=== PATIENT | male | born 1960 | race Caucasian/White ===

== ENCOUNTER 2017-01-25 19:37 | Inpatient (IN) | payer OTHER ==
[~2017-01-25] VITALS: Ht 167.6 cm; Wt 85.0 kg
[~2017-01-25 19:37] MED LIST: AMLO-218 PO; CEFT1PIG2 IVPB; INSU100C SC; LANT3I SC; SAN30GM TOP
[2017-01-26] MEDS ORDERED: PIPER-TAZO 3.375 GM IV (PMX) 100 ML IVPB STA (00:33)
[2017-01-26] MEDS ORDERED: morphine 4 MG/ML VIAL IV STA (01:44)
[2017-01-26] MEDS ORDERED: ONDANSETRON 4 MG INJ IV STA (01:44)
[2017-01-26 02:38] LABS: BASOPHIL # 0.1 10^3/ul (0.0-0.1); BASOPHILS % 1.1 % (0.0-2.0); EOSINOPHILS # 0.2 10^3/ul (0.0-0.5); EOSINOPHILS % 2.8 % (0.0-7.0); HEMATOCRIT 38.3 % (42.0-52.0); HEMOGLOBIN 13.6 g/dl (14.0-18.0); LYMPHOCYTES # 2.2 10^3/ul (0.8-2.9); LYMPHOCYTES % 41.7 % (15.0-51.0); MEAN CORPUSCULAR HEMOGLOBIN 33.2 pg (29.0-33.0); MEAN CORPUSCULAR HGB CONC 35.5 g/dl (32.0-37.0); MEAN CORPUSCULAR VOLUME 93.4 fl (82.0-101.0); MEAN PLATELET VOLUME 10.8 fl (7.4-10.4); MONOCYTE # 0.4 10^3/ul (0.3-0.9); MONOCYTES % 7.9 % (0.0-11.0); NEUTROPHILS % 46.3 % (39.0-77.0); PLATELET COUNT 147 10^3/UL (140-415); RED CELL DISTRIBUTION WIDTH 11.5 % (11.5-14.5); WHITE BLOOD COUNT 5.4 10^3/ul (4.8-10.8)
--- NOTE | 2017-01-26 02:42 | ERA ---
ER Documentation Chief Complaint Date/Time DATE: 01/26/17 TIME: 02:39 Chief Complaint ulcer on his right toe, diabetic HPI This is a 56-year-old male who has a worsening ulcer on his right foot is getting progressively bigger along with purulent drainage. Denies any fevers or chills no nausea vomiting. Denies any current issues. Says sugars have been under relative control ROS All systems reviewed and are negative except as per history of present illness. Medications Home Meds Active Scripts Ceftriaxone Sod* (Rocephin* 1GM/50ML (PMX)) 1 Gm/50 Ml Iv.soln., 1 GM IVPB Q24H for 28 Days, EA Prov:OSMAR SWAIN MD 05/28/15 Collagenase* (Santyl*) 1 Applic Oint, 1 APPLIC TOP DAILY for 28 Days, BOTTLE Prov:OSMAR SWAIN MD 05/27/15 Amlodipine Besylate* (Norvasc*) 10 Mg Tab, 10 MG PO DAILY for 28 Days, BOTTLE Prov:OSMAR SWAIN MD 04/01/15 Reported Medications Insulin Glargine* (Lantus*) 100 Unit/Ml Soln, 6 UNIT SC DAILY, EA 05/20/15 Insulin Lispro (Humalog) 100 U/Ml Cartridge, 0 SC SLIDING SCALE AC, EA 05/20/15 Allergies Allergies: Coded Allergies: No Known Allergy (Unverified , 03/23/15) PMhx/Soc History of Surgery: Yes (s/p right toe amputation 2016) Anesthesia Reaction: No Hx Neurological Disorder: Yes (neuropathy) Hx Respiratory Disorders: No Hx Cardiac Disorders: Yes (PVD) Hx Psychiatric Problems: No Hx Alcohol Use: Yes (ON WEEKENDS) Hx Substance Use: No Hx Tobacco Use: No Smoking Status: Unknown if ever smoked Physical Exam Vitals Vital Signs Date Time Temp Pulse Resp B/P Pulse Ox O2 Delivery O2 Flow Rate FiO2 01/25/17 21:14 98.9 83 18 180/91 98 Physical Exam Const: [] Head: Atraumatic Eyes: Normal Conjunctiva ENT: Normal External Ears, Nose and Mouth. Neck: Full range of motion..~ No meningismus. Resp: Clear to auscultation bilaterally Cardio: Regular rate and rhythm, no murmurs Abd: Soft, non tender, non distended. Normal bowel sounds Skin: Right foot with ulceration shows periodic drainage Back: No midline or flank tenderness Ext: No cyanosis, or edema Neur: Awake and alert Psych: Normal Mood and Affect Results 24 hrs Laboratory Tests Test 01/26/17 01:25 White Blood Count Pending Red Blood Count Pending Hemoglobin Pending Hematocrit Pending Mean Corpuscular Volume Pending Mean Corpuscular Hemoglobin Pending Mean Corpuscular Hemoglobin Concent Pending Red Cell Distribution Width Pending Platelet Count Pending Mean Platelet Volume Pending Current Medications Medications (Trade) Dose Ordered Sig/Lee Route PRN Reason Start Time Stop Time Status Last Admin Dose Admin Piperacillin Sod/ Tazobactam Sod (Zosyn 3.375gm/ 100 ml (Pmx)) 100 ml @ 200 mls/hr ONCE STAT IVPB 01/26/17 00:33 01/26/17 01:02 DC 01/26/17 01:40 Morphine Sulfate (morphine) 4 mg ONCE STAT IV 01/26/17 01:44 01/26/17 01:46 DC 01/26/17 02:09 Ondansetron HCl (Zofran Inj) 4 mg ONCE STAT IV 01/26/17 01:44 01/26/17 01:46 DC 01/26/17 02:09 Procedures/MDM Medical decision-makin yo male with worsening diabetic foot ulcer. Patient be admitted for intravenous antibiotics. Dr. Swain is on-call for the patient's insurance Departure Diagnosis: Primary Impression: Abscess of right foot Condition: Stable WAYNE WATTS Jan 26, 2017 02:42
[2017-01-26] MEDS ORDERED: GLIP5TAB13 PO (02:52)
[2017-01-26] MEDS ORDERED: ERGO2000 PO (02:52)
[2017-01-26] MEDS ORDERED: GEMF600T60 PO (02:52)
[2017-01-26 02:57] LABS: ALBUMIN 3.6 g/dl (3.3-4.9); ALBUMIN/GLOBULIN RATIO 1.02; BILIRUBIN,INDIRECT 0.5 mg/dl (0-1.1); BILIRUBIN,TOTAL 0.5 mg/dl (0.2-1.3); CREATININE 0.64 mg/dl (0.61-1.24); POTASSIUM 3.9 mmol/L (3.5-5.1); TOTAL PROTEIN 7.1 g/dl (6.1-8.1)
[2017-01-26] MEDS ORDERED: GLUCAGON 1 MG INJ IM PRN (09:00)
[2017-01-26] MEDS ORDERED: GLUCOSE GEL 15 GRAM TUBE BUCCAL PRN (09:00)
[2017-01-26] MEDS ORDERED: DEXTROSE 50% 50 ML SYRINGE IV PRN ×2 (09:00)
[2017-01-26] MEDS ORDERED: GLUCOSE GEL 15 GRAM TUBE PO PRN ×2 (09:00)
[2017-01-26 10:00] VITALS: Ht 167.6 cm; Wt 85.0 kg
[2017-01-26] MEDS ORDERED: VANCOMYCIN IV PER PHARMACY XX SCH (10:30)
[2017-01-26] MEDS ORDERED: ZOLPIDEM 5 MG TAB PO PRN (10:30)
[2017-01-26] MEDS ORDERED: ACETAMINOPHEN 325 MG TAB PO PRN (10:30)
[2017-01-26] MEDS ORDERED: ONDANSETRON 4 MG INJ IV PRN (10:30)
[2017-01-26] MEDS ORDERED: DOCUSATE SODIUM 100 MG CAP PO PRN (10:30)
[2017-01-26] MEDS ORDERED: HYDROCODONE/APAP (5/325) TAB PO PRN ×2 (10:30)
[2017-01-26] MEDS: GEMFIBROZIL 600 MG TAB PO SCH ×2 (11:46→21:23)
[2017-01-26] MEDS: AMLODIPINE 10 MG TAB PO SCH (11:47)
[2017-01-26] MEDS: CEFEPIME 1GM/50 ML (PMX) 50 ML IVPB SCH ×2 (11:49→21:22)
--- NOTE | 2017-01-26 11:56 | HP ---
DATE OF ADMISSION: 01/26/2017 REASON FOR ADMISSION: Right 2nd toe swelling and blackish discoloration. HISTORY OF PRESENT ILLNESS: This is this is a 56-year-old male with a past medical history of poorly-controlled diabetes, hypertension, hypercholesteremia, history of right 4th toe osteomyelitis, status post amputation and anemia who came in to the emergency department complaining of worsening redness, swelling and blackish discoloration of the right 2nd toe for past 3-4 days. Patient was seen in April 2015 where the patient had an abscess of the right 4th toe, had amputation. The patient was seen by ID and wound consultation. Patient was discharged with a PICC line with IV antibiotics. However, the patient said that he noticed worsening red 2nd toe, foot swelling and some blackish discoloration for the last 3 days, which made him worried and came to the emergency department. Denied any fevers and chills. According to the patient, he had not been taking insulin for the last 6 months due to some kind of paperwork. He just occasionally checks fingersticks at home, which are usually 140 in the morning. In the ED, vital signs were, temperature afebrile, heart rate 83, respirations 18, blood pressure 149/76, and then was given Zosyn and was admitted for further management. PAST MEDICAL HISTORY: 1. Diabetes. 2. Hypertension. 3. Hypercholesteremia. 4. History of osteomyelitis. 5. History of status post amputation of the right 4th toe. ALLERGIES: NONE. MEDICATIONS: Patient does not know 4 medications, which he takes at home. Has not taken insulin for the last 6 months. PAST SURGICAL HISTORY: Status post amputation of the right 4th toe. SOCIAL HISTORY: Drinks beer, 2 per day for many years. Denies any smoking or any other drug use. Works in [employer]. FAMILY HISTORY: Noncontributory. REVIEW OF SYSTEMS: Denies any chest pain, shortness of breath. Any abdominal pain, nausea, vomiting, diarrhea. Denies any headache, any blurry vision. Denies any urinary symptoms. Denies any focal neurological deficits. PHYSICAL EXAMINATION: VITAL SIGNS: Blood pressure 126/73, heart rate 71, respirations 17, afebrile. GENERAL: Patient is awake, alert, oriented x4. Does not appear to be in any acute distress. HEENT: Pupils equal, round, reactive to light. NECK: Supple. No JVD. HEART: Regular rate, rhythm. LUNGS: Clear to auscultate bilaterally. ABDOMEN: Soft, nontender, nondistended. Positive normoactive bowel sounds. EXTREMITIES: Right lower extremity, right 2nd toe, patient has a blackish discoloration of the tip of the toe associated with some swelling and redness on the 1st metatarsal, on the tip, extending to the back. Status post amputation on the right 4th toe. Dorsalis pedis is present. Good pulses on the left. DIAGNOSTIC DATA: BMP within normal limits. Glucose of 257. White count of 5.4, hemoglobin 13.6, platelet count of 147. ASSESSMENT: This is a 56-year-old male presenting with: 1. Right 2nd toe cellulitis, rule out osteomyelitis. 2. Diabetes, uncontrolled, off insulin for last 6 months. 3. Hypertension. 4. Hypercholesteremia. 5. History of osteomyelitis, status post amputation of right 4th toe. PLAN: At this period of time, patient is admitted to med-surg unit. Patient will be started on IV antibiotics with vancomycin and Zosyn. We will also get an x-ray to rule out for osteomyelitis. We will call Dr. Meehan for podiatry consultation. Also call ID consultation with Dr. Shanks. GI and DVT prophylaxis. The patient will remain strict diabetic control. Spoke to the patient with the help of a translator interpreter. The rest of the treatment will depend on the patient's hospitalization course. Dictated By: MD GIORGI Admae/regino/jozef /Document#: [id number]
[2017-01-26] MEDS: INSULIN GLARGINE [LANtus] 3 ML PEN SC SCH (11:58)
[2017-01-26] MEDS: INSULIN ASPART [NOVOLOG] 3 ML PEN SC SCH ×3 (11:59→22:53)
--- NOTE | 2017-01-26 13:45 | RADRPT ---
PROCEDURE: XR Foot. CLINICAL INDICATION: Right foot pain and swelling, concern for osteomyelitis TECHNIQUE: 3 views of the right foot are available for review. COMPARISON: Radiographs of the right foot March 19, 2015 and May 20, 2015 and MRI of the ri t foot May 22 15 FINDINGS: There is amputation of the fourth digit. Slight bone remodelling of the fourth metatarsal head is n oted, similar to prior. There is a small subchondral cyst or erosion at the head of the second middle phalanx. There is fore foot soft tissue swelling and swelling of the second digit. There are vascular calcifications. There is mild first metatarsophalangeal joint osteoarthrosis. IMPRESSION: 1. Small nonspecific subchondral lucency at the head of the second middle phalanx, not clearly seen on prior . This could be degenerative though cannot exclude osteomyelitis at this location. Recomm end MRI for further evaluation. 2. Forefoot soft tissue swelling, most prominent at the second digit. 3. Amputation of the fourth digit. Slight bone remodelling of the fourth metatarsal head at site o f prior osteomyelitis. RPTAT: UU .Edgar Espinal MD, MD Date Time Electronically viewed and signed by .Edgar Espinal MD, on 01/26/2017 13:44 .K/
[2017-01-26 14:12] VITALS: BP 150/82; RESP 20
[2017-01-26] MEDS ORDERED: VANCOMYCIN 2 GM in SOD CHLORIDE 0.9% 500 ML IVPB SCH (15:00)
--- NOTE | 2017-01-26 17:20 | CONS ---
DATE OF ADMISSION: 01/26/2017 DATE OF CONSULTATION: 01/26/2017 REASON FOR CONSULTATION: Antibiotic management. HISTORY OF PRESENT ILLNESS: Anjel Mena is a 56-year-old male, who was admitted with right 2nd toe swelling and blackish discoloration. His past problems include: 1. Adult onset diabetes mellitus. 2. Peripheral vascular disease. 3. Status post amputation of right 4th toe. 4. Hypertension. 5. Hypercholesterolemia. 6. History of osteomyelitis in the past. Acutely, patient has poorly controlled diabetes. He comes to the emergency room with worsening redness, swelling and blackish discoloration of right 2nd toe, which has been going on for the last 3 or 4 days. He was seen in January 2015, where he had an abscess of the right 4th toe, which was amputated. He was seen by ID and Wound Care. He was discharged with a PICC line and IV antibiotics. Patient notes that he noted worsening of the right 2nd toe with foot swelling and discoloration over the last 3 days. Denies fever or chills. He has not been taking insulin for the last 6 months. Patient was given Zosyn in the emergency room. On admission, his white count was 5.4, H and H of 13.6 and 38.3, platelet count 147,000. BUN and creatinine are 9/0.64. His liver function tests are within normal limits. Lipase is 232, anion gap of 18. Patient is now on vancomycin and cefepime. Imaging studies are pending. Blood cultures were done. PAST MEDICAL HISTORY: Operations as outlined. FAMILY HISTORY: Noncontributory. SURGICAL HISTORY: As outlined. SOCIAL HISTORY: He drinks 2 cans of beer per day. Does not smoke or abuse drugs. He works grape picking. ALLERGIES: NONE TO PENICILLIN, SULFA OR FOODS. MEDICATION: Per chart review. REVIEW OF SYSTEMS: As per HPI. PHYSICAL EXAMINATION: GENERAL: Patient is a well-developed, well-nourished male, who is alert, responsive, in no acute distress. VITAL SIGNS: Stable. He is afebrile. SKIN: Without generalized rash. HEENT: Within normal limits. NECK: Supple. LYMPH NODES: None palpable. CHEST: Decreased breath sounds at the bases. HEART: Without murmur or gallop. ABDOMEN: Soft, nontender, without organo-splenomegaly or masses. EXTREMITIES: His right 2nd toe has blackish discoloration of the tip of the toe with some swelling and redness of the 1st metatarsal as well, status post amputation of the right 4th toe. IMPRESSION AND PLAN: Patient is on vancomycin and cefepime. Dr. Meehan has been called from Podiatry. I will dictate my findings to Dr. Burkett. Dictated By: Merrill Shanks MD JD/regino/kim /Document#: [id number]
[2017-01-26 19:24] VITALS: BP 158/91; RESP 20
[2017-01-27 01:49] VITALS: BP 132/78; RESP 20
[2017-01-27] MEDS: ACCU-CHEK XX SCH (01:54)
[2017-01-27] MEDS ORDERED: ACCU-CHEK XX SCH ×2 (02:00)
[2017-01-27] MEDS: VANCOMYCIN 1.5 GM in SOD CHLORIDE 0.9% 250 ML IVPB SCH ×2 (05:10→16:36)
[2017-01-27 06:35] LABS: BASOPHILS % 0.8 % (0.0-2.0); EOSINOPHILS # 0.2 10^3/ul (0.0-0.5); EOSINOPHILS % 3.3 % (0.0-7.0); HEMATOCRIT 38.8 % (42.0-52.0); HEMOGLOBIN 13.6 g/dl (14.0-18.0); LYMPHOCYTES # 1.8 10^3/ul (0.8-2.9); LYMPHOCYTES % 34.6 % (15.0-51.0); MEAN CORPUSCULAR HGB CONC 35.1 g/dl (32.0-37.0); MEAN CORPUSCULAR VOLUME 94.2 fl (82.0-101.0); MEAN PLATELET VOLUME 10.8 fl (7.4-10.4); MONOCYTE # 0.3 10^3/ul (0.3-0.9); MONOCYTES % 6.7 % (0.0-11.0); NEUTROPHILS % 54.4 % (39.0-77.0); PLATELET COUNT 150 10^3/UL (140-415); RED BLOOD COUNT 4.12 10^6/ul (4.70-6.10); RED CELL DISTRIBUTION WIDTH 11.3 % (11.5-14.5); WHITE BLOOD COUNT 5.1 10^3/ul (4.8-10.8)
[2017-01-27] MEDS: AMLODIPINE 10 MG TAB PO SCH (08:20)
[2017-01-27] MEDS: GEMFIBROZIL 600 MG TAB PO SCH ×2 (08:20→20:50)
[2017-01-27] MEDS: INSULIN ASPART [NOVOLOG] 3 ML PEN SC SCH ×4 (08:28→20:57)
[2017-01-27] MEDS: INSULIN GLARGINE [LANtus] 3 ML PEN SC SCH (08:28)
[2017-01-27 08:58] VITALS: BP 144/89; RESP 20
[2017-01-27] MEDS ORDERED: FAMOTIDINE 20 MG INJ IV SCH (09:00)
[2017-01-27] MEDS: CEFEPIME 1GM/50 ML (PMX) 50 ML IVPB SCH (09:44)
[2017-01-27] MEDS: ENOXAPARIN 40 MG/0.4 ML SYG SC SCH (09:56)
--- NOTE | 2017-01-27 12:31 | PN ---
Date/Time of Note Date/Time of Note DATE: 01/27/17 TIME: 12:30 Assessment/Plan VTE Prophylaxis VTE Prophylaxis Intervention: LMWH Lines/Catheters IV Catheter Type (from Nrs): Saline Lock Assessment/Plan Chief Complaint/Hosp Course 56 y/o with 1. Right 2nd toe cellulitis, rule out osteomyelitis. 2. Diabetes, uncontrolled, off insulin for last 6 months. 3. Hypertension. 4. Hypercholesteremia. 5. History of osteomyelitis, status post amputation of right 4th toe. Recs - On iv Vancomycin, switched to po Levaquin, appreciate I.D recs - MRI of rt foot to r/o osteomyelitis - Podiatry consult pending - increase Lantus to 8 , DM teaching - GI/DVT prophylaxsis Problems: Subjective 24 Hr Interval Summary Free Text/Dictation Pt feels better Exam/Review of Systems Vital Signs Vitals Vital Signs Date Time Temp Pulse Resp B/P Pulse Ox O2 Delivery O2 Flow Rate FiO2 01/27/17 08:58 97.4 72 20 144/89 97 01/26/17 06:15 Room Air Intake and Output 01/26/17 01/26/17 01/27/17 15:00 23:00 07:00 Intake Total 2170 ml 600 ml Output Total 1800 ml 1800 ml Balance 370 ml -1200 ml Exam Gen:Awake,alert Neck:supple CVS:Regular rate and rthym Abdomen:soft , non tender Ext rt 2nd toe black discoloration, erthyema, swelling 1+pulses Results Result Diagram: 01/27/17 0543 01/26/17 0125 Results 24 hrs Laboratory Tests Test 01/26/17 17:15 01/26/17 22:48 01/27/17 01:54 01/27/17 05:43 Bedside Glucose 221 H 192 198 White Blood Count 5.1 Red Blood Count 4.12 L Hemoglobin 13.6 L Hematocrit 38.8 L Mean Corpuscular Volume 94.2 Mean Corpuscular Hemoglobin 33.0 Mean Corpuscular Hemoglobin Concent 35.1 Red Cell Distribution Width 11.3 L Platelet Count 150 Mean Platelet Volume 10.8 H Neutrophils % 54.4 Lymphocytes % 34.6 Monocytes % 6.7 Eosinophils % 3.3 Basophils % 0.8 Nucleated Red Blood Cells % 0.0 Neutrophils # (Manual) 2.8 Lymphocytes # 1.8 Monocytes # 0.3 Eosinophils # 0.2 Basophils # 0.0 Nucleated Red Blood Cells # 0.0 Test 01/27/17 07:53 01/27/17 11:59 Bedside Glucose 196 206 Medications Medications Current Medications Amlodipine Besylate (Norvasc) 10 mg DAILY PO Last administered on 01/27/17 08: 20; Admin Dose 10 MG; Start 01/26/17 at 09:00 Gemfibrozil (Lopid) 600 mg BID PO Last administered on 01/27/17 08:20; Admin Dose 600 MG; Start 01/26/17 at 09:00 Insulin Glargine (Lantus) 6 unit DAILY SC Last administered on 01/27/17 08:28 ; Admin Dose 6 UNIT; Start 01/26/17 at 09:00 Miscellaneous Information 1 ea NOTE XX ; Start 01/26/17 at 09:00 Glucose (Glutose) 15 gm Q15M PRN PO DECREASED GLUCOSE; Start 01/26/17 at 09:00 Glucose (Glutose) 22.5 gm Q15M PRN PO DECREASED GLUCOSE; Start 01/26/17 at 09: 00 Dextrose (D50w Syringe) 25 ml Q15M PRN IV DECREASED GLUCOSE; Start 01/26/17 at 09:00 Dextrose (D50w Syringe) 50 ml Q15M PRN IV DECREASED GLUCOSE; Start 01/26/17 at 09:00 Glucagon (Glucagen) 1 mg Q15M PRN IM DECREASED GLUCOSE; Start 01/26/17 at 09:00 Glucose (Glutose) 15 gm Q15M PRN BUCCAL DECREASED GLUCOSE; Start 01/26/17 at 09 :00 Ondansetron HCl (Zofran Inj) 4 mg Q6H PRN IV NAUSEA AND/OR VOMITING; Start at 10:30 Acetaminophen (Tylenol Tab) 650 mg Q6H PRN PO PAIN LEVEL 1-3 OR FEVER; Start at 10:30 Acetaminophen/ Hydrocodone Bitart ([place] (5/325)) 1 tab Q6H PRN PO MODERATE PAIN LEVEL 4-6; Start 01/26/17 at 10:30 Acetaminophen/ Hydrocodone Bitart ([place] (5/325)) 2 tab Q6H PRN PO SEVERE PAIN LEVEL 7-10; Start 01/26/17 at 10:30 Docusate Sodium (Colace) 100 mg Q12H PRN PO CONSTIPATION; Start 01/26/17 at 10: 30 Zolpidem Tartrate (Ambien) 5 mg QHS PRN PO SLEEP; Start 01/26/17 at 10:30 Famotidine (Pepcid Iv) 20 mg Q12 IV Last administered on 01/27/17 09:44; Admin Dose 20 MG; Start 01/27/17 at 09:00 Enoxaparin Sodium (Lovenox) 40 mg DAILY SC Last administered on 01/27/17 09:56 ; Admin Dose 40 MG; Start 01/27/17 at 09:00 Diagnostic Test (Pha) 1 ea 1 ea 02 XX Last administered on 01/27/17 01:54; Admin Dose 1 EA; Start 01/27/17 at 02:00 Cefepime HCl 50 ml @ 100 mls/hr Q12 IVPB Last administered on 01/27/17 09:44 ; Admin Dose 100 MLS/HR; Start 01/26/17 at 12:00 Vancomycin HCl/ Sodium Chloride (Vancocin/NS) 250 ml @ 83.333 mls/ hr Q12H IVPB Last administered on 01/27/17 05:10; Admin Dose 83.333 MLS/HR; Start at 05:00 NAZIA LEWIS MD Jan 27, 2017 12:31
[2017-01-27] MEDS ORDERED: LEVOFLOXACIN 500 MG TAB PO ONE (13:30)
[2017-01-27 15:07] VITALS: BP 119/63; RESP 20
--- NOTE | 2017-01-27 18:08 | CONS ---
DATE OF ADMISSION: 01/26/2017 DATE OF CONSULTATION: 01/27/2017 VASCULAR SURGERY CONSULTATION: HISTORY OF PRESENT ILLNESS: Mr. Anjel Mena is a 56-year-old gentleman who presented to [facility] secondary to right diabetic foot infection with second toe gangrene in which he is currently receiving IV antibiotics. Of note, the patient has had a history of previous right lower extremity trauma with deformity and a fourth toe amputation that was performed in 2014. At the moment, the patient denies shortness of breath, chest pain, nausea, vomiting, fever, or chills. REVIEW OF SYSTEMS: Fourteen point review performed and negative except what was mentioned in HPI. PAST MEDICAL HISTORY: Diabetes, hypertension, hypercholesterolemia, right foot osteomyelitis of the fourth toe, right lower leg tib-fib fracture. PAST SURGICAL HISTORY: Right fourth toe amputation. ALLERGIES: NONE. SOCIAL HISTORY: The patient drinks alcohol. Denies tobacco or illicit drug use. FAMILY HISTORY: Diabetes and hypertension. PHYSICAL EXAMINATION: GENERAL APPEARANCE: Alert and oriented x3. No apparent distress. HEENT: Normocephalic, atraumatic. PERRLA. EOMI. Mucosa moist. NECK: Supple. No carotid bruit. LUNGS: Clear to auscultation bilaterally. No crackles. HEART: S1, S2 present. No murmurs. ABDOMEN: Soft, nontender, nondistended. Bowel sounds positive. EXTREMITIES: Right lower extremity, palpable femoral pulse, palpable pedal pulse. Motor and sensory intact. Capillary refill 3 seconds. Previous fourth toe amputation site that is well healed. Second toe with erythema and gangrene at the tip. Left lower extremity, palpable femoral pulse, palpable pedal pulse. Motor and sensory intact. Capillary refill 3 seconds. IMPRESSION AND PLAN: 1. Bilateral lower extremity atherosclerosis with right lower extremity diabetic foot infection second toe gangrene: It seems the patient does have some component of atherosclerosis; however, the patient does have palpable pedal pulse in which his infection likely is related to his diabetes and not to a flow-limiting stenosis. We will plan to obtain noninvasive vascular studies to further evaluate his right lower extremity perfusion and will follow his progress of his second toe. 2. Continue local wound care per our podiatry colleagues. 3. Continue with antibiotics. Thank you for allowing us to partake in the care of your patient. Please call with any questions. I discussed findings, plan and management with the patient, he understands. Optimize vascular status (BP meds, diet, nutrition, exercise, sugar control, antiplatelets). Dictated By: Spencer Contreras MD /regino/waylon /Document#: [id number]
[2017-01-27 20:00] VITALS: BP 133/77; RESP 20
[2017-01-27] MEDS: FAMOTIDINE 20 MG TAB PO SCH (20:50)
--- NOTE | 2017-01-27 23:54 | RADRPT ---
PROCEDURE: US Lower extremity arterial. CLINICAL INDICATION: Lower extremity ulcer. TECHNIQUE: Multiple sonographic images of the bilateral lower extremity arteries was obtained utili zing grayscale, color-flow, and doppler imaging. The images were reviewed on a PACS workstation. COMPARISON: None. FINDINGS: RIGHT LEG: Common femoral artery: 138 cm/s; triphasic waveforms Proximal superficial femoral artery: 114 cm/s; triphasic waveforms Mid superficial femoral artery: 126 cm/s; triphasic waveforms Distal superficial femoral artery: 114 cm/s; triphasic waveforms Popliteal artery: 77 cm/s; triphasic waveforms Posterior tibial artery: 75 cm/s; triphasic waveforms Dorsalis pedis artery: 93 cm/s; biphasic waveforms LEFT LEG: Common femoral artery: 103 cm/s; triphasic waveforms Proximal superficial femoral artery: 93 cm/s; triphasic waveforms Mid superficial femoral artery: 103 cm/s; triphasic waveforms Distal superficial femoral artery: 73 cm/s; triphasic waveforms Popliteal artery: 86 cm/s; triphasic waveforms Posterior tibial artery: 56 cm/s; triphasic waveforms Dorsalis pedis artery: 56 cm/s; triphasic waveforms Right HCAGO: 1.1 Left CHAGO: 1 IMPRESSION: 1. Mildly dampened wave form in the right dorsalis pedis artery, possibly related to intrinsic dise ase. 2. No evidence of hemodynamically significant stenosis bilaterally. RPTAT: HLBP CHAGO Value Interpretation Recommendation >1.4 Calcification/Vessel Hardening Refer to a Vascular Specialist 1.0-1.4 Normal None 0.9-1.0 Acceptable None 0.8-0.9 Some Arterial Disease Treat Risk Factors 0.5-0.8 Moderate Arterial Disease Refer to a Vascular Specialist Stenosis category Peak systolic velocity (cm/s) Velocity ratio Distal artery spectral waveform <20% <150 <1.5 Triphasic, normal PSV 20% to 49% 150-200 1.5-2.0 Triphasic, normal PSV 50% to 75% 200-300 2.0-4.0 Monophasic, reduced PSV >75% >300, EDV >40 >4.0 Damped monophasic, reduced PSV Occlusion No flow Damped monophasic, reduced PSV Interpretation of arterial duplex testing of lower-extremity arteries and interventions. Seminars in Vascular Surgery. 2013-Jan;26(2-3):95-104. .Junior Layne MD, MD Date Time Electronically viewed and signed by .Junior Layne MD, MD on 01/27/2017 23:53 .P/
[2017-01-28 01:18] VITALS: BP 155/87; RESP 20
--- NOTE | 2017-01-28 01:18 | CONS ---
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 Will discuss with team. Thank you again for involving me in the care of this patient. If you have any questions regarding this case, please feel free to contact me at pager: [phone] or reach me at mobile: [phone]. Consultation Date/Type/Reason Admit Date/Time Jan 26, 2017 at 02:37 Date of Consultation: Jan 27, 2017 Type of Consultation: Foot and ankle surgery Reason for Consultation Evaluation and opinion on right forefoot gangrene Social History Smoking Status: Never smoker Exam/Review of Systems Vital Signs Vitals Vital Signs Date Time Temp Pulse Resp B/P Pulse Ox O2 Delivery O2 Flow Rate FiO2 01/27/17 20:00 97.9 69 20 133/77 97 01/26/17 06:15 Room Air Intake and Output 01/27/17 01/27/17 01/28/17 15:00 23:00 07:00 Intake Total 300 ml 1210 ml Output Total 2200 ml 550 ml Balance 300 ml -990 ml -550 ml Results Result Diagram: 01/27/17 0543 01/26/17 0125 Results 24 hrs Laboratory Tests Test 01/27/17 01:54 01/27/17 05:43 01/27/17 07:53 01/27/17 11:59 Bedside Glucose 198 196 206 White Blood Count 5.1 Red Blood Count 4.12 L Hemoglobin 13.6 L Hematocrit 38.8 L Mean Corpuscular Volume 94.2 Mean Corpuscular Hemoglobin 33.0 Mean Corpuscular Hemoglobin Concent 35.1 Red Cell Distribution Width 11.3 L Platelet Count 150 Mean Platelet Volume 10.8 H Neutrophils % 54.4 Lymphocytes % 34.6 Monocytes % 6.7 Eosinophils % 3.3 Basophils % 0.8 Nucleated Red Blood Cells % 0.0 Neutrophils # (Manual) 2.8 Lymphocytes # 1.8 Monocytes # 0.3 Eosinophils # 0.2 Basophils # 0.0 Nucleated Red Blood Cells # 0.0 Test 01/27/17 17:31 01/27/17 20:52 Bedside Glucose 252 H 191 Medications Medications Current Medications Amlodipine Besylate (Norvasc) 10 mg DAILY PO Last administered on 01/27/17 08: 20; Admin Dose 10 MG; Start 01/26/17 at 09:00 Gemfibrozil (Lopid) 600 mg BID PO Last administered on 01/27/17 20:50; Admin Dose 600 MG; Start 01/26/17 at 09:00 Miscellaneous Information 1 ea NOTE XX ; Start 01/26/17 at 09:00 Glucose (Glutose) 15 gm Q15M PRN PO DECREASED GLUCOSE; Start 01/26/17 at 09:00 Glucose (Glutose) 22.5 gm Q15M PRN PO DECREASED GLUCOSE; Start 01/26/17 at 09: 00 Dextrose (D50w Syringe) 25 ml Q15M PRN IV DECREASED GLUCOSE; Start 01/26/17 at 09:00 Dextrose (D50w Syringe) 50 ml Q15M PRN IV DECREASED GLUCOSE; Start 01/26/17 at 09:00 Glucagon (Glucagen) 1 mg Q15M PRN IM DECREASED GLUCOSE; Start 01/26/17 at 09:00 Glucose (Glutose) 15 gm Q15M PRN BUCCAL DECREASED GLUCOSE; Start 01/26/17 at 09 :00 Ondansetron HCl (Zofran Inj) 4 mg Q6H PRN IV NAUSEA AND/OR VOMITING; Start at 10:30 Acetaminophen (Tylenol Tab) 650 mg Q6H PRN PO PAIN LEVEL 1-3 OR FEVER; Start at 10:30 Acetaminophen/ Hydrocodone Bitart ([place] (5/325)) 1 tab Q6H PRN PO MODERATE PAIN LEVEL 4-6; Start 01/26/17 at 10:30 Acetaminophen/ Hydrocodone Bitart ([place] (5/325)) 2 tab Q6H PRN PO SEVERE PAIN LEVEL 7-10; Start 01/26/17 at 10:30 Docusate Sodium (Colace) 100 mg Q12H PRN PO CONSTIPATION; Start 01/26/17 at 10: 30 Zolpidem Tartrate (Ambien) 5 mg QHS PRN PO SLEEP; Start 01/26/17 at 10:30 Enoxaparin Sodium (Lovenox) 40 mg DAILY SC Last administered on 01/27/17 09:56 ; Admin Dose 40 MG; Start 01/27/17 at 09:00 Diagnostic Test (Pha) 1 ea 1 ea 02 XX Last administered on 01/27/17 01:54; Admin Dose 1 EA; Start 01/27/17 at 02:00 Vancomycin HCl/ Sodium Chloride (Vancocin/NS) 250 ml @ 83.333 mls/ hr Q12H IVPB Last administered on 01/27/17 16:36; Admin Dose 83.333 MLS/HR; Start at 05:00 Levofloxacin (Levaquin) 500 mg DAILY@06 PO ; Start 01/28/17 at 06:00 Miscellaneous Information (*Rx Drug Level Order Reminder*) VANCOMYCIN TROUGH AT 0400 ONCE ONCE XX ; Start 01/28/17 at 04:00; Stop 01/28/17 at 04:01 Famotidine (Pepcid) 20 mg Q12 PO Last administered on 01/27/17 20:50; Admin Dose 20 MG; Start 01/27/17 at 21:00 Insulin Glargine (Lantus) 8 unit DAILY SC ; Start 01/28/17 at 09:00 HIGINIO ECHEVARRIA DPM Jan 28, 2017 01:18 HIGINIO ECHEVARRIA DPM Jan 28, 2017 01:18
[2017-01-28] MEDS: ACCU-CHEK XX SCH (01:55)
--- NOTE | 2017-01-28 02:46 | PN ---
DATE: 01/27/2017 SUBJECTIVE DATA: No events overnight. No fevers. The patient is alert, denies pain, looks comfortable. LABORATORY AND DIAGNOSTIC DATA: WBC 5.1, no shift, no bands. BUN 9, creatinine 0.64. Microbiology blood cultures remain negative. ANTIMICROBIALS: The patient is on IV vancomycin and cefepime. PHYSICAL EXAMINATION: Well-developed, middle-aged man who is alert in no distress. HEENT: Head atraumatic, normocephalic. Sclerae are anicteric. Buccal mucosa is pink. NECK: Supple. LUNGS: Chest rise is symmetrical. Breath sounds are clear. HEART: S1, S2. ABDOMEN: Soft. Bowel sounds present. EXTREMITIES: Right second toe edema, erythema, and wound. ASSESSMENT: 1. Right foot cellulitis with probable osteomyelitis of the toe. 2. Poorly controlled diabetes. 3. Peripheral vascular disease. 4. Hypertension. 5. History of osteomyelitis in the past. PLAN: We are going to change cefepime to Levaquin. Continue vancomycin. Consider MRI of the foot and podiatry evaluation. Dictated By: Miguel Ángel Briggs NP /regino/daquan /Document#: [id number]
[2017-01-28] MEDS: LEVOFLOXACIN 500 MG TAB PO SCH (05:24)
[2017-01-28] MEDS: VANCOMYCIN 1.5 GM in SOD CHLORIDE 0.9% 250 ML IVPB SCH (05:24)
[2017-01-28 05:47] LABS: CREATININE 0.78 mg/dl (0.61-1.24)
[2017-01-28] MEDS: INSULIN ASPART [NOVOLOG] 3 ML PEN SC SCH ×4 (08:02→20:24)
[2017-01-28 08:20] VITALS: BP 161/86; RESP 18
[2017-01-28] MEDS: GEMFIBROZIL 600 MG TAB PO SCH ×2 (08:44→20:19)
[2017-01-28] MEDS: FAMOTIDINE 20 MG TAB PO SCH ×2 (08:44→20:19)
[2017-01-28] MEDS: AMLODIPINE 10 MG TAB PO SCH (08:44)
[2017-01-28] MEDS: ENOXAPARIN 40 MG/0.4 ML SYG SC SCH (08:48)
[2017-01-28] MEDS ORDERED: INSULIN GLARGINE [LANtus] 3 ML PEN SC SCH (09:00)
--- NOTE | 2017-01-28 10:26 | PN ---
Date/Time of Note Date/Time of Note DATE: 01/28/17 TIME: 10:26 Assessment/Plan VTE Prophylaxis VTE Prophylaxis Intervention: LMWH Lines/Catheters IV [facility] ([facility] [place] Urinary Cath still in place: No Assessment/Plan Chief Complaint/Hosp Course 56 y/o with 1. Right 2nd toe cellulitis, rule out osteomyelitis 2. Diabetes, uncontrolled, off insulin for last 6 months. 3. Hypertension. 4. Hypercholesteremia. 5. History of osteomyelitis, status post amputation of right 4th toe. Recs - On iv Vancomycin/Levaquin po - Spoke to Dr Meehan, will schedule him - MRI of rt foot to r/o osteomyelitis pending results - increase Lantus to 10 , DM teaching, pt will likely need insulin with meals - Add benazepril for BP - GI/DVT prophylaxsis Problems: Subjective 24 Hr Interval Summary Free Text/Dictation Pt denies any complains Exam/Review of Systems Vital Signs Vitals Vital Signs Date Time Temp Pulse Resp B/P Pulse Ox O2 Delivery O2 Flow Rate FiO2 01/28/17 08:20 97.6 77 18 161/86 97 01/26/17 06:15 Room Air Intake and Output 01/27/17 01/27/17 01/28/17 14:59 22:59 06:59 Intake Total 300 ml 1210 ml Output Total 2200 ml 1000 ml Balance 300 ml -990 ml -1000 ml Exam Gen: Awake, oriented Neck:supple Lungs:clear Abdomen:soft, non tender Ext: rt 2nd toe black discoloration with redness, dorsalis pedis present+ Results Result Diagram: 01/27/17 0543 01/28/17 0420 Results 24 hrs Laboratory Tests Test 01/27/17 11:59 01/27/17 17:31 01/27/17 20:52 01/28/17 01:54 Bedside Glucose 206 252 H 191 171 Test 01/28/17 04:20 01/28/17 07:42 Blood Urea Nitrogen 12 Creatinine 0.78 Vancomycin Level Trough 11.1 Bedside Glucose 165 Medications Medications Current Medications Amlodipine Besylate (Norvasc) 10 mg DAILY PO Last administered on 01/28/17 08: 44; Admin Dose 10 MG; Start 01/26/17 at 09:00 Gemfibrozil (Lopid) 600 mg BID PO Last administered on 01/28/17 08:44; Admin Dose 600 MG; Start 01/26/17 at 09:00 Miscellaneous Information 1 ea NOTE XX ; Start 01/26/17 at 09:00 Glucose (Glutose) 15 gm Q15M PRN PO DECREASED GLUCOSE; Start 01/26/17 at 09:00 Glucose (Glutose) 22.5 gm Q15M PRN PO DECREASED GLUCOSE; Start 01/26/17 at 09: 00 Dextrose (D50w Syringe) 25 ml Q15M PRN IV DECREASED GLUCOSE; Start 01/26/17 at 09:00 Dextrose (D50w Syringe) 50 ml Q15M PRN IV DECREASED GLUCOSE; Start 01/26/17 at 09:00 Glucagon (Glucagen) 1 mg Q15M PRN IM DECREASED GLUCOSE; Start 01/26/17 at 09:00 Glucose (Glutose) 15 gm Q15M PRN BUCCAL DECREASED GLUCOSE; Start 01/26/17 at 09 :00 Ondansetron HCl (Zofran Inj) 4 mg Q6H PRN IV NAUSEA AND/OR VOMITING; Start at 10:30 Acetaminophen (Tylenol Tab) 650 mg Q6H PRN PO PAIN LEVEL 1-3 OR FEVER; Start at 10:30 Acetaminophen/ Hydrocodone Bitart ([place] (5/325)) 1 tab Q6H PRN PO MODERATE PAIN LEVEL 4-6; Start 01/26/17 at 10:30 Acetaminophen/ Hydrocodone Bitart ([place] (5/325)) 2 tab Q6H PRN PO SEVERE PAIN LEVEL 7-10; Start 01/26/17 at 10:30 Docusate Sodium (Colace) 100 mg Q12H PRN PO CONSTIPATION; Start 01/26/17 at 10: 30 Zolpidem Tartrate (Ambien) 5 mg QHS PRN PO SLEEP; Start 01/26/17 at 10:30 Enoxaparin Sodium (Lovenox) 40 mg DAILY SC Last administered on 01/28/17 08:48 ; Admin Dose 40 MG; Start 01/27/17 at 09:00 Diagnostic Test (Pha) 1 ea 1 ea 02 XX Last administered on 01/27/17 01:54; Admin Dose 1 EA; Start 01/27/17 at 02:00 Vancomycin HCl/ Sodium Chloride (Vancocin/NS) 250 ml @ 83.333 mls/ hr Q12H IVPB Last administered on 01/28/17 05:24; Admin Dose 83.333 MLS/HR; Start at 05:00 Levofloxacin (Levaquin) 500 mg DAILY@06 PO Last administered on 01/28/17 05:24 ; Admin Dose 500 MG; Start 01/28/17 at 06:00 Famotidine (Pepcid) 20 mg Q12 PO Last administered on 01/28/17 08:44; Admin Dose 20 MG; Start 01/27/17 at 21:00 Insulin Glargine (Lantus) 8 unit DAILY SC Last administered on 01/28/17 08:14 ; Admin Dose 8 UNIT; Start 01/28/17 at 09:00 NAZIA LEWIS MD Jan 28, 2017 10:26
[2017-01-28 14:52] VITALS: BP 158/88; PULSE 68; RESP 18
--- NOTE | 2017-01-28 15:28 | PN ---
DATE: 01/28/2017 SUBJECTIVE DATA: No acute changes. The patient is awake, looks comfortable. Denies pain, no fevers. LABORATORY AND DIAGNOSTIC DATA: WBC yesterday was 5.1. No labs this morning. ANTIMICROBIALS: He is on IV vancomycin and oral Levaquin. OBJECTIVE DATA: GENERAL: Obese well-developed middle-aged man, who is awake, in no distress. HEENT: Head atraumatic, normocephalic. Sclerae anicteric. Buccal mucosa dry. NECK: Supple. CHEST: Chest rise symmetrical. Breath sounds clear. HEART: S1, S2. ABDOMEN: Soft, bowel sounds present. EXTREMITIES: No cyanosis. ASSESSMENT: 1. Right foot cellulitis with second toe wound, probable osteomyelitis. 2. Poorly-controlled diabetes. 3. Hypertension. PLAN: The patient remains stable. Continue present care. Await for MRI report. Follow Podiatry recommendations. Dictated By: Miguel Ángel Briggs NP /regino/holley /Document#: [id number]
--- NOTE | 2017-01-28 16:31 | RADRPT ---
PROCEDURE: MRI OF THE RIGHT FOOT. CLINICAL INDICATION: Osteomyelitis of the second digit. Second digit pain and swelling. History of fourth digit amputation.. TECHNIQUE: Multiple MRI images of the right foot were obtained in multiple planes utilizing multip le pulse sequences. Images were interpreted on the high-resolution PACS system. COMPARISON: X-ray of the right foot dated 01/26/2017 and prior MRI of the right foot dated 015. FINDINGS: 1st ray: There is mild arthrosis of the first metatarsal phalangeal joint. There is cortical and ch ondral irregularity and minimal osteophyte formation. There is mild medial capsular ligament thicke david. No evidence for erosive change. There is no evidence for osteochondral defect. No evidence fo r tendon tear. No evidence for sesamoiditis. No mass lesion seen. 2nd ray: There is soft tissue swelling of the tip of the second toe and there is bone marrow edema w ithin the distal phalanx with mild bone destructive change. Findings are consistent with osteomyeli tis of the distal phalanx. No evidence for gangrene. There are degenerative changes of the base of the proximal phalanx which have not changed since the prior examination. There is ulceration of the tip of the toe. 3rd ray through 5th ray: No evidence for osteochondral defect. No evidence for plantar plate defec t. No evidence for subluxation. No mass lesion identified. No evidence for tendon tear. Ligament s are intact. No evidence for metatarsal fracture. Other findings: There is no evidence for neuroma. No evidence for plantar fibroma. No solid mass l esion identified. IMPRESSION: 1. 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 and there is a toe tip ulceratio n. 2. Preexisting degenerative change at the base of the second proximal phalanx. RPTAT: XX .Meng You MD, Date Time Electronically viewed and signed by .Meng You MD, on 01/28/2017 16:31 .T/
[2017-01-28] MEDS: VANCOMYCIN 1.75 GM in NS 500 ML IVPB SCH (16:34)
[2017-01-28] MEDS: BENAZEPRIL 10 MG TAB PO SCH (16:59)
[2017-01-28 18:57] LABS: CREATININE 0.64 mg/dl (0.61-1.24); POTASSIUM 3.9 mmol/L (3.5-5.1)
[2017-01-28 21:07] VITALS: BP 143/82; RESP 18
--- NOTE | 2017-01-28 23:53 | PN ---
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 I will try to get OR time for this Wednesday. Preop orders will be entered once exactly more time and date is set. Exam/Review of Systems Vital Signs Vitals Vital Signs Date Time Temp Pulse Resp B/P Pulse Ox O2 Delivery O2 Flow Rate FiO2 01/28/17 21:07 97.4 66 18 143/82 98 01/28/17 14:52 Room Air Intake and Output 01/27/17 01/27/17 01/28/17 14:59 22:59 06:59 Intake Total 300 ml 1210 ml Output Total 2200 ml 1000 ml Balance 300 ml -990 ml -1000 ml Results Result Diagram: 01/27/17 0543 01/28/17 1829 HIGINIO ECHEVARRIA DPM Jan 28, 2017 23:53
[2017-01-29] MEDS: ACCU-CHEK XX SCH (01:34)
[2017-01-29 01:44] VITALS: BP 139/84; RESP 18
[2017-01-29] MEDS: LEVOFLOXACIN 500 MG TAB PO SCH (05:15)
[2017-01-29] MEDS: VANCOMYCIN 1.75 GM in NS 500 ML IVPB SCH ×2 (05:15→17:47)
[2017-01-29 06:48] LABS: CREATININE 0.66 mg/dl (0.61-1.24)
[2017-01-29] MEDS: INSULIN ASPART [NOVOLOG] 3 ML PEN SC SCH ×5 (08:10→21:31)
[2017-01-29] MEDS: GEMFIBROZIL 600 MG TAB PO SCH ×2 (08:17→21:24)
[2017-01-29] MEDS: FAMOTIDINE 20 MG TAB PO SCH ×2 (08:20→21:24)
[2017-01-29] MEDS: BENAZEPRIL 10 MG TAB PO SCH (08:21)
[2017-01-29] MEDS: AMLODIPINE 10 MG TAB PO SCH (08:21)
[2017-01-29 08:30] VITALS: BP 167/92; RESP 20
[2017-01-29] MEDS: ENOXAPARIN 40 MG/0.4 ML SYG SC SCH (08:42)
[2017-01-29] MEDS ORDERED: INSULIN GLARGINE [LANtus] 3 ML PEN SC SCH (09:00)
[2017-01-29 09:52] VITALS: BP 147/82; PULSE 79
--- NOTE | 2017-01-29 13:02 | PN ---
DATE: 01/29/2017 SUBJECTIVE DATA: The patient is alert, feels better, looks comfortable. No fevers. OBJECTIVE DATA: Vital signs stable. DIAGNOSTIC DATA: MRI of the foot revealed second distal phalangeal osteomyelitis with adjacent cellulitis and toe tip ulceration. ANTIMICROBIALS: Patient is on Vanco and Levaquin. PHYSICAL EXAMINATION: GENERAL: Well developed, middle-aged, man, who is alert, in no distress. HEENT: Head atraumatic, normocephalic. Sclerae anicteric. Buccal mucosa pink. NECK: Supple. CHEST: Rise symmetrical. Breath sounds clear. HEART: S1, S2. ABDOMEN: Soft, bowel sounds present. EXTREMITIES: With right second toe edema and wound. ASSESSMENT: 1. Right second toe cellulitis with osteomyelitis. 2. Diabetes. 3. Diabetic neuropathy. 4. Hypertension. PLAN: 1. The patient remains stable on appropriate antimicrobials. 2. Podiatry on case. 3. Plan for surgical intervention. 4. Possible amputation of the toe. 5. Continue tight blood sugar control. 6. If the patient has toe amputated we will need on a short course of antibiotics. 7. We will discuss with Podiatry. Dictated By: Miguel Ángel Briggs NP /regino/tevin /Document#: [id number]
--- NOTE | 2017-01-29 13:45 | PN ---
Date/Time of Note Date/Time of Note DATE: 01/29/17 TIME: 13:43 Assessment/Plan VTE Prophylaxis VTE Prophylaxis Intervention: ambulation Lines/Catheters IV [facility] Type (from [facility]): Peripheral IV Urinary Cath still in place: No Assessment/Plan Chief Complaint/Hosp Course 1. Right second toe cellulitis with osteomyelitis. 2. Diabetes mellitus uncontrolled. 3. Diabetic neuropathy. 4. Hypertension controlled. Problems: Assessment/Plan 1. surgery by dr Meehan is pending 2. better DM control Subjective 24 Hr Interval Summary Constitutional: improved, no complaints Exam/Review of Systems Vital Signs Vitals Vital Signs Date Time Temp Pulse Resp B/P Pulse Ox O2 Delivery O2 Flow Rate FiO2 01/29/17 09:52 79 147/82 01/29/17 08:30 97.3 20 97 01/28/17 14:52 Room Air Intake and Output 01/28/17 01/28/17 01/29/17 15:00 23:00 07:00 Intake Total 250 ml 1840 ml 920 ml Output Total 1800 ml 1270 ml Balance 250 ml 40 ml -350 ml Exam Constitutional: alert, oriented Neck: supple Musculoskeletal: swelling (right foot II toe edema) Extremities: normal pulses Results Result Diagram: 01/27/17 0543 01/29/17 0530 Results 24 hrs Laboratory Tests Test 01/28/17 16:49 01/28/17 18:29 01/28/17 20:18 01/29/17 01:28 Bedside Glucose 236 H 296 H 190 Sodium Level 137 Potassium Level 3.9 Chloride Level 98 Carbon Dioxide Level 28 Anion Gap 15 Blood Urea Nitrogen 12 Creatinine 0.64 Glucose Level 175 Calcium Level 9.0 Test 01/29/17 05:30 01/29/17 08:02 01/29/17 12:23 Blood Urea Nitrogen 13 Creatinine 0.66 Bedside Glucose 210 262 H Medications Medications Current Medications Amlodipine Besylate (Norvasc) 10 mg DAILY PO Last administered on 01/29/17 08: 21; Admin Dose 10 MG; Start 01/26/17 at 09:00 Gemfibrozil (Lopid) 600 mg BID PO Last administered on 01/29/17 08:17; Admin Dose 600 MG; Start 01/26/17 at 09:00 Miscellaneous Information 1 ea NOTE XX ; Start 01/26/17 at 09:00 Glucose (Glutose) 15 gm Q15M PRN PO DECREASED GLUCOSE; Start 01/26/17 at 09:00 Glucose (Glutose) 22.5 gm Q15M PRN PO DECREASED GLUCOSE; Start 01/26/17 at 09: 00 Dextrose (D50w Syringe) 25 ml Q15M PRN IV DECREASED GLUCOSE; Start 01/26/17 at 09:00 Dextrose (D50w Syringe) 50 ml Q15M PRN IV DECREASED GLUCOSE; Start 01/26/17 at 09:00 Glucagon (Glucagen) 1 mg Q15M PRN IM DECREASED GLUCOSE; Start 01/26/17 at 09:00 Glucose (Glutose) 15 gm Q15M PRN BUCCAL DECREASED GLUCOSE; Start 01/26/17 at 09 :00 Ondansetron HCl (Zofran Inj) 4 mg Q6H PRN IV NAUSEA AND/OR VOMITING; Start at 10:30 Acetaminophen (Tylenol Tab) 650 mg Q6H PRN PO PAIN LEVEL 1-3 OR FEVER; Start at 10:30 Acetaminophen/ Hydrocodone Bitart ([place] (5/325)) 1 tab Q6H PRN PO MODERATE PAIN LEVEL 4-6; Start 01/26/17 at 10:30 Acetaminophen/ Hydrocodone Bitart ([place] (5/325)) 2 tab Q6H PRN PO SEVERE PAIN LEVEL 7-10; Start 01/26/17 at 10:30 Docusate Sodium (Colace) 100 mg Q12H PRN PO CONSTIPATION; Start 01/26/17 at 10: 30 Zolpidem Tartrate (Ambien) 5 mg QHS PRN PO SLEEP; Start 01/26/17 at 10:30 Enoxaparin Sodium (Lovenox) 40 mg DAILY SC Last administered on 01/29/17 08:42 ; Admin Dose 40 MG; Start 01/27/17 at 09:00 Diagnostic Test (Pha) (Accu-Chek) 1 ea 02 XX Last administered on 01/27/17 01: 54; Admin Dose 1 EA; Start 01/27/17 at 02:00 Levofloxacin (Levaquin) 500 mg DAILY@06 PO Last administered on 01/29/17 05:15 ; Admin Dose 500 MG; Start 01/28/17 at 06:00 Famotidine 20 mg 20 mg Q12 PO Last administered on 01/29/17 08:20; Admin Dose 20 MG; Start 01/27/17 at 21:00 Vancomycin HCl/ Sodium Chloride (Vancocin/NS) 500 ml @ 125 mls/hr Q12H IVPB Last administered on 01/29/17 05:15; Admin Dose 125 MLS/HR; Start 01/28/17 at 17 :00 Insulin Glargine (Lantus) 10 unit DAILY SC Last administered on 01/29/17 08:10 ; Admin Dose 10 UNIT; Start 01/29/17 at 09:00 Benazepril HCl (Lotensin) 10 mg DAILY PO Last administered on 01/29/17 08:21; Admin Dose 10 MG; Start 01/28/17 at 16:00 SOFYA GUTIERREZ Jan 29, 2017 13:45
[2017-01-29 14:00] VITALS: BP 161/87; RESP 16
[2017-01-29 20:00] VITALS: BP 138/80; RESP 20
[2017-01-29] MEDS: INSULIN GLARGINE [LANtus] 3 ML PEN SC SCH (21:30)
--- NOTE | 2017-01-29 22:26 | PN ---
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 I have discussed and counseled patient extensively regarding this condition and the proposed surgery. He is scheduled for surgery tomorrow morning at 11 AM. Preoperative orders are placed. I have gotten a phone call from the OR stating that the cases may be canceled for tomorrow because the boiler is malfunctioning and is being fixed. I was told that if the boiler is fixed by the time the surgery is supposed to start, I will be notified. I will keep the patient n.p.o. nonetheless and will await the operating room to let me know whether or not the cases are back on schedule. Subjective 24 Hr Interval Summary Patient is seen and examined at bedside. Reports no specific pain in his right foot. Denies fever or chills. Patient is scheduled for surgery tomorrow morning at 11 AM. Constitutional: no complaints Pain Control: well controlled Exam/Review of Systems Vital Signs Vitals Vital Signs Date Time Temp Pulse Resp B/P Pulse Ox O2 Delivery O2 Flow Rate FiO2 01/29/17 14:00 97.9 61 16 161/87 97 01/28/17 14:52 Room Air Intake and Output 01/28/17 01/28/17 01/29/17 15:00 23:00 07:00 Intake Total 250 ml 1840 ml 920 ml Output Total 1800 ml 1270 ml Balance 250 ml 40 ml -350 ml Exam Free Text/Dictation Patient is laying supine in bed in no acute distress Right second toe distal gangrene present with purulent drainage noted Right second toe is edematous and nontender to palpation The MRI is positive for osteomyelitis of the right second toe Dorsalis pedis pulses 2+ and posterior tibial pulses 2+ bilaterally Results Result Diagram: 01/27/17 0543 01/29/17 0530 HIGINIO ECHEVARRIA DPM Jan 29, 2017 22:26
[2017-01-30 02:00] VITALS: BP 134/78; RESP 18
[2017-01-30] MEDS: ACCU-CHEK XX SCH (02:00)
[2017-01-30 04:34] LABS: CALCIUM 9.2 mg/dl (8.4-10.2); CREATININE 0.67 mg/dl (0.61-1.24); POTASSIUM 3.9 mmol/L (3.5-5.1)
[2017-01-30] MEDS: VANCOMYCIN 1.75 GM in NS 500 ML IVPB SCH ×2 (05:22→18:12)
[2017-01-30] MEDS: LEVOFLOXACIN 500 MG TAB PO SCH (05:24)
[2017-01-30 08:10] VITALS: BP 156/85; RESP 18
[2017-01-30] MEDS: INSULIN ASPART [NOVOLOG] 3 ML PEN SC SCH ×7 (08:15→20:57)
[2017-01-30] MEDS: FAMOTIDINE 20 MG TAB PO SCH ×2 (09:00→20:54)
[2017-01-30] MEDS: GEMFIBROZIL 600 MG TAB PO SCH ×2 (09:00→20:54)
[2017-01-30] MEDS: AMLODIPINE 10 MG TAB PO SCH (09:00)
[2017-01-30] MEDS: ENOXAPARIN 40 MG/0.4 ML SYG SC SCH (09:00)
[2017-01-30] MEDS: BENAZEPRIL 10 MG TAB PO SCH (09:00)
[2017-01-30] MEDS: INSULIN GLARGINE [LANtus] 3 ML PEN SC SCH (09:43)
--- NOTE | 2017-01-30 12:35 | PN ---
Date/Time of Note Date/Time of Note DATE: 01/30/17 TIME: 12:34 Assessment/Plan VTE Prophylaxis VTE Prophylaxis Intervention: ambulation Lines/Catheters IV C[facility] Type [facility]from [facility] Urinary Cath still in place: No Assessment/Plan Chief Complaint/Hosp Course 1. Right second toe cellulitis with osteomyelitis. 2. Diabetes mellitus uncontrolled. 3. Diabetic neuropathy. 4. Hypertension controlled. Problems: Assessment/Plan 1. Amputation of the II toe left foot is pending Subjective 24 Hr Interval Summary Constitutional: improved, no complaints Exam/Review of Systems Vital Signs Vitals Vital Signs Date Time Temp Pulse Resp B/P Pulse Ox O2 Delivery O2 Flow Rate FiO2 01/30/17 08:10 98.2 62 18 156/85 96 01/28/17 14:52 Room Air Intake and Output 01/29/17 01/29/17 01/30/17 15:00 23:00 07:00 Intake Total 500 ml 2420 ml 360 ml Output Total 1750 ml 1400 ml Balance 500 ml 670 ml -1040 ml Exam Psych: no complaints Head: normocephalic Neck: supple Respiratory: clear to auscultation Gastrointestinal: soft Results Result Diagram: 01/27/17 0543 01/30/17 0352 Results 24 hrs Laboratory Tests Test 01/29/17 17:43 01/29/17 21:22 01/30/17 02:44 01/30/17 03:52 Bedside Glucose 138 184 150 Sodium Level 137 Potassium Level 3.9 Chloride Level 104 Carbon Dioxide Level 28 Anion Gap 9 # Blood Urea Nitrogen 14 Creatinine 0.67 Glucose Level 136 Calcium Level 9.2 Vancomycin Level Trough 15.9 Test 01/30/17 08:13 01/30/17 09:38 Bedside Glucose 124 130 Medications Medications Current Medications Amlodipine Besylate (Norvasc) 10 mg DAILY PO Last administered on 01/29/17 08: 21; Admin Dose 10 MG; Start 01/26/17 at 09:00 Gemfibrozil (Lopid) 600 mg BID PO Last administered on 01/29/17 21:24; Admin Dose 600 MG; Start 01/26/17 at 09:00 Miscellaneous Information 1 ea NOTE XX ; Start 01/26/17 at 09:00 Glucose (Glutose) 15 gm Q15M PRN PO DECREASED GLUCOSE; Start 01/26/17 at 09:00 Glucose (Glutose) 22.5 gm Q15M PRN PO DECREASED GLUCOSE; Start 01/26/17 at 09: 00 Dextrose (D50w Syringe) 25 ml Q15M PRN IV DECREASED GLUCOSE; Start 01/26/17 at 09:00 Dextrose (D50w Syringe) 50 ml Q15M PRN IV DECREASED GLUCOSE; Start 01/26/17 at 09:00 Glucagon (Glucagen) 1 mg Q15M PRN IM DECREASED GLUCOSE; Start 01/26/17 at 09:00 Glucose (Glutose) 15 gm Q15M PRN BUCCAL DECREASED GLUCOSE; Start 01/26/17 at 09 :00 Ondansetron HCl (Zofran Inj) 4 mg Q6H PRN IV NAUSEA AND/OR VOMITING; Start at 10:30 Acetaminophen (Tylenol Tab) 650 mg Q6H PRN PO PAIN LEVEL 1-3 OR FEVER; Start at 10:30 Acetaminophen/ Hydrocodone Bitart ([place] (5/325)) 1 tab Q6H PRN PO MODERATE PAIN LEVEL 4-6; Start 01/26/17 at 10:30 Acetaminophen/ Hydrocodone Bitart ([place] (5/325)) 2 tab Q6H PRN PO SEVERE PAIN LEVEL 7-10; Start 01/26/17 at 10:30 Docusate Sodium (Colace) 100 mg Q12H PRN PO CONSTIPATION; Start 01/26/17 at 10: 30 Zolpidem Tartrate (Ambien) 5 mg QHS PRN PO SLEEP; Start 01/26/17 at 10:30 Enoxaparin Sodium (Lovenox) 40 mg DAILY SC Last administered on 01/29/17 08:42 ; Admin Dose 40 MG; Start 01/27/17 at 09:00 Diagnostic Test (Pha) (Accu-Chek) 1 ea 02 XX Last administered on 01/27/17 01: 54; Admin Dose 1 EA; Start 01/27/17 at 02:00 Levofloxacin (Levaquin) 500 mg DAILY@06 PO Last administered on 01/29/17 05:15 ; Admin Dose 500 MG; Start 01/28/17 at 06:00 Famotidine 20 mg 20 mg Q12 PO Last administered on 01/29/17 21:24; Admin Dose 20 MG; Start 01/27/17 at 21:00 Vancomycin HCl/ Sodium Chloride (Vancocin/NS) 500 ml @ 125 mls/hr Q12H IVPB Last administered on 01/30/17 05:22; Admin Dose 125 MLS/HR; Start 01/28/17 at 17 :00 Benazepril HCl (Lotensin) 10 mg DAILY PO Last administered on 01/29/17 08:21; Admin Dose 10 MG; Start 01/28/17 at 16:00 Insulin Glargine (Lantus) 15 unit DAILY SC Last administered on 01/30/17 09:43 ; Admin Dose 15 UNIT; Start 01/29/17 at 20:00 SOFYA GUTIERREZ Jan 30, 2017 12:35
[2017-01-30 14:28] VITALS: BP 155/86; RESP 18
--- NOTE | 2017-01-30 18:31 | CONS ---
Date/Time of Note Date/Time of Note DATE: 01/30/17 TIME: 18:30 Assessment/Plan Assessment/Plan Chief Complaint/Hosp Course ID PROGRESS NOTE CURRENT ABX: => IV vancomycin and oral Levaquin. 24H INTERVAL SUMMARY * No fevers, VSS, NAD * MRI Left foot: IMPRESSION: * 1. 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 and there is a toe tip ulceration. * 2. Preexisting degenerative change at the base of the second proximal phalanx. EXAM GEN: VSS, no fevers, obese HEENT: Unremarkable NECK: WNL CVS: RRR, CHEST:Equal chest rise bilaterally, without dyspnea ABD: Soft, NT, EXT: Warm, R-2nd toe gangrenous changes ID ASSESSMENT 56 yo M admit with: 1. Right foot cellulitis with second toe wound, probable osteomyelitis. * MRI Foot: 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 and there is a toe tip ulceration. 2. Poorly-controlled diabetes. 3. Hypertension. 4. Peripheral arterial disease without evidence significant stenosis * 01/27/17 Arterial Duplex: Mildly dampened wave form in the right dorsalis pedis artery, possibly related to intrinsic disease. 5. Daily ETOH = Beer, watch for ETOH withdrawal Sxs ( ? ) MRSA Nares INVASIVES: PIV CURRENT ABX: =>Vanco IV + Levaquin PO ID RECOMMENDATIONS Check nares for MRSA, continue ABX . Problems: Consultation Date/Type/Reason Admit Date/Time Jan 26, 2017 at 02:37 Initial Consult Date 01/27/17 Type of Consultation: ID Exam/Review of Systems Vital Signs Vitals Vital Signs Date Time Temp Pulse Resp B/P Pulse Ox O2 Delivery O2 Flow Rate FiO2 01/30/17 14:28 97.9 65 18 155/86 99 01/28/17 14:52 Room Air Intake and Output 01/29/17 01/29/17 01/30/17 15:00 23:00 07:00 Intake Total 500 ml 2420 ml 360 ml Output Total 1750 ml 1400 ml Balance 500 ml 670 ml -1040 ml Results Result Diagram: 01/27/17 0543 01/30/17 0352 Results 24 hrs Laboratory Tests Test 01/29/17 21:22 01/30/17 02:44 01/30/17 03:52 01/30/17 08:13 Bedside Glucose 184 150 124 Sodium Level 137 Potassium Level 3.9 Chloride Level 104 Carbon Dioxide Level 28 Anion Gap 9 # Blood Urea Nitrogen 14 Creatinine 0.67 Glucose Level 136 Calcium Level 9.2 Vancomycin Level Trough 15.9 Test 01/30/17 09:38 01/30/17 12:42 01/30/17 17:06 01/30/17 17:59 Bedside Glucose 130 102 94 98 Medications Medications Current Medications Amlodipine Besylate (Norvasc) 10 mg DAILY PO Last administered on 01/29/17 08: 21; Admin Dose 10 MG; Start 01/26/17 at 09:00 Gemfibrozil (Lopid) 600 mg BID PO Last administered on 01/29/17 21:24; Admin Dose 600 MG; Start 01/26/17 at 09:00 Miscellaneous Information 1 ea NOTE XX ; Start 01/26/17 at 09:00 Glucose (Glutose) 15 gm Q15M PRN PO DECREASED GLUCOSE; Start 01/26/17 at 09:00 Glucose (Glutose) 22.5 gm Q15M PRN PO DECREASED GLUCOSE; Start 01/26/17 at 09: 00 Dextrose (D50w Syringe) 25 ml Q15M PRN IV DECREASED GLUCOSE; Start 01/26/17 at 09:00 Dextrose (D50w Syringe) 50 ml Q15M PRN IV DECREASED GLUCOSE; Start 01/26/17 at 09:00 Glucagon (Glucagen) 1 mg Q15M PRN IM DECREASED GLUCOSE; Start 01/26/17 at 09:00 Glucose (Glutose) 15 gm Q15M PRN BUCCAL DECREASED GLUCOSE; Start 01/26/17 at 09 :00 Ondansetron HCl (Zofran Inj) 4 mg Q6H PRN IV NAUSEA AND/OR VOMITING; Start at 10:30 Acetaminophen (Tylenol Tab) 650 mg Q6H PRN PO PAIN LEVEL 1-3 OR FEVER; Start at 10:30 Acetaminophen/ Hydrocodone Bitart ([place] (5/325)) 1 tab Q6H PRN PO MODERATE PAIN LEVEL 4-6; Start 01/26/17 at 10:30 Acetaminophen/ Hydrocodone Bitart ([place] (5/325)) 2 tab Q6H PRN PO SEVERE PAIN LEVEL 7-10; Start 01/26/17 at 10:30 Docusate Sodium (Colace) 100 mg Q12H PRN PO CONSTIPATION; Start 01/26/17 at 10: 30 Zolpidem Tartrate (Ambien) 5 mg QHS PRN PO SLEEP; Start 01/26/17 at 10:30 Enoxaparin Sodium (Lovenox) 40 mg DAILY SC Last administered on 01/29/17 08:42 ; Admin Dose 40 MG; Start 01/27/17 at 09:00 Diagnostic Test (Pha) (Accu-Chek) 1 ea 02 XX Last administered on 01/27/17 01: 54; Admin Dose 1 EA; Start 01/27/17 at 02:00 Levofloxacin (Levaquin) 500 mg DAILY@06 PO Last administered on 01/29/17 05:15 ; Admin Dose 500 MG; Start 01/28/17 at 06:00 Famotidine 20 mg 20 mg Q12 PO Last administered on 01/29/17 21:24; Admin Dose 20 MG; Start 01/27/17 at 21:00 Vancomycin HCl/ Sodium Chloride (Vancocin/NS) 500 ml @ 125 mls/hr Q12H IVPB Last administered on 01/30/17 18:12; Admin Dose 125 MLS/HR; Start 01/28/17 at 17 :00 Benazepril HCl (Lotensin) 10 mg DAILY PO Last administered on 01/29/17 08:21; Admin Dose 10 MG; Start 01/28/17 at 16:00 Insulin Glargine (Lantus) 15 unit DAILY SC Last administered on 01/30/17 09:43 ; Admin Dose 15 UNIT; Start 01/29/17 at 20:00 ASHUTOSH AMATO NP Jan 30, 2017 18:31
[2017-01-30 19:22] VITALS: BP 158/83; RESP 20
[2017-01-31 02:00] VITALS: BP 154/84; RESP 20
[2017-01-31] MEDS: ACCU-CHEK XX SCH (02:00)
[2017-01-31] MEDS: VANCOMYCIN 1.75 GM in NS 500 ML IVPB SCH ×2 (05:15→17:44)
[2017-01-31] MEDS: LEVOFLOXACIN 500 MG TAB PO SCH (05:15)
[2017-01-31 08:01] VITALS: BP 161/88; PULSE 59; RESP 20
[2017-01-31] MEDS: INSULIN ASPART [NOVOLOG] 3 ML PEN SC SCH ×7 (08:15→21:00)
[2017-01-31] MEDS: BENAZEPRIL 10 MG TAB PO SCH (08:18)
[2017-01-31] MEDS: FAMOTIDINE 20 MG TAB PO SCH ×2 (08:18→21:05)
[2017-01-31] MEDS: AMLODIPINE 10 MG TAB PO SCH (08:18)
[2017-01-31] MEDS: GEMFIBROZIL 600 MG TAB PO SCH ×2 (08:18→21:05)
[2017-01-31] MEDS: ENOXAPARIN 40 MG/0.4 ML SYG SC SCH (08:39)
[2017-01-31] MEDS: INSULIN GLARGINE [LANtus] 3 ML PEN SC SCH (08:39)
[2017-01-31 09:42] VITALS: BP 124/73; PULSE 68
--- NOTE | 2017-01-31 14:07 | PN ---
Date/Time of Note Date/Time of Note DATE: 01/31/17 TIME: 14:06 Assessment/Plan VTE Prophylaxis VTE Prophylaxis Intervention: ambulation Lines/Catheters IV [facility] Type (from [facility]): [facility] Urinary Cath still in place: No Assessment/Plan Chief Complaint/Hosp Course 1. Right second toe cellulitis with osteomyelitis. 2. Diabetes mellitus uncontrolled. 3. Diabetic neuropathy. 4. Hypertension controlled. Problems: Assessment/Plan 1. surgery day moved to Wednesday02/02/2017 Subjective 24 Hr Interval Summary Constitutional: improved, no complaints Exam/Review of Systems Vital Signs Vitals Vital Signs Date Time Temp Pulse Resp B/P Pulse Ox O2 Delivery O2 Flow Rate FiO2 01/31/17 09:42 68 124/73 01/31/17 08:01 97.8 20 98 Room Air Intake and Output 01/30/17 01/30/17 01/31/17 15:00 23:00 07:00 Intake Total 500 ml 740 ml 825 ml Output Total 800 ml 1000 ml Balance 500 ml -60 ml -175 ml Exam Psych: no complaints ENMT: nl external ears & nose Respiratory: clear to auscultation Cardiovascular: regular rate and rhythm Results Result Diagram: 01/27/17 0543 01/30/17 0352 Results 24 hrs Laboratory Tests Test 01/30/17 17:06 01/30/17 17:59 01/30/17 20:51 01/31/17 02:27 Bedside Glucose 94 98 194 135 Test 01/31/17 08:23 01/31/17 12:25 Bedside Glucose 108 215 Medications Medications Current Medications Amlodipine Besylate (Norvasc) 10 mg DAILY PO Last administered on 01/31/17 08: 18; Admin Dose 10 MG; Start 01/26/17 at 09:00 Gemfibrozil (Lopid) 600 mg BID PO Last administered on 01/31/17 08:18; Admin Dose 600 MG; Start 01/26/17 at 09:00 Miscellaneous Information 1 ea NOTE XX ; Start 01/26/17 at 09:00 Glucose (Glutose) 15 gm Q15M PRN PO DECREASED GLUCOSE; Start 01/26/17 at 09:00 Glucose (Glutose) 22.5 gm Q15M PRN PO DECREASED GLUCOSE; Start 01/26/17 at 09: 00 Dextrose (D50w Syringe) 25 ml Q15M PRN IV DECREASED GLUCOSE; Start 01/26/17 at 09:00 Dextrose (D50w Syringe) 50 ml Q15M PRN IV DECREASED GLUCOSE; Start 01/26/17 at 09:00 Glucagon (Glucagen) 1 mg Q15M PRN IM DECREASED GLUCOSE; Start 01/26/17 at 09:00 Glucose (Glutose) 15 gm Q15M PRN BUCCAL DECREASED GLUCOSE; Start 01/26/17 at 09 :00 Ondansetron HCl (Zofran Inj) 4 mg Q6H PRN IV NAUSEA AND/OR VOMITING; Start at 10:30 Acetaminophen (Tylenol Tab) 650 mg Q6H PRN PO PAIN LEVEL 1-3 OR FEVER; Start at 10:30 Acetaminophen/ Hydrocodone Bitart ([place] (5/325)) 1 tab Q6H PRN PO MODERATE PAIN LEVEL 4-6; Start 01/26/17 at 10:30 Acetaminophen/ Hydrocodone Bitart ([place] (5/325)) 2 tab Q6H PRN PO SEVERE PAIN LEVEL 7-10; Start 01/26/17 at 10:30 Docusate Sodium (Colace) 100 mg Q12H PRN PO CONSTIPATION; Start 01/26/17 at 10: 30 Zolpidem Tartrate (Ambien) 5 mg QHS PRN PO SLEEP; Start 01/26/17 at 10:30 Enoxaparin Sodium (Lovenox) 40 mg DAILY SC Last administered on 01/31/17 08:39 ; Admin Dose 40 MG; Start 01/27/17 at 09:00 Diagnostic Test (Pha) (Accu-Chek) 1 ea 02 XX Last administered on 01/27/17 01: 54; Admin Dose 1 EA; Start 01/27/17 at 02:00 Levofloxacin (Levaquin) 500 mg DAILY@06 PO Last administered on 01/31/17 05:15 ; Admin Dose 500 MG; Start 01/28/17 at 06:00 Famotidine 20 mg 20 mg Q12 PO Last administered on 01/31/17 08:18; Admin Dose 20 MG; Start 01/27/17 at 21:00 Vancomycin HCl/ Sodium Chloride (Vancocin/NS) 500 ml @ 125 mls/hr Q12H IVPB Last administered on 01/31/17 05:15; Admin Dose 125 MLS/HR; Start 01/28/17 at 17 :00 Benazepril HCl (Lotensin) 10 mg DAILY PO Last administered on 01/31/17 08:18; Admin Dose 10 MG; Start 01/28/17 at 16:00 Insulin Glargine (Lantus) 15 unit DAILY SC Last administered on 01/31/17 08:39 ; Admin Dose 15 UNIT; Start 01/29/17 at 20:00 SOFYA GUTIERREZ Jan 31, 2017 14:06
--- NOTE | 2017-01-31 17:42 | CONS ---
Date/Time of Note Date/Time of Note DATE: 01/31/17 TIME: 17:39 Assessment/Plan Assessment/Plan Chief Complaint/Hosp Course ID PROGRESS NOTE CURRENT ABX: => IV vancomycin and oral Levaquin. 24H INTERVAL SUMMARY * No fevers, VSS, NAD * MRI Left foot: IMPRESSION: * 1. 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 and there is a toe tip ulceration. * 2. Preexisting degenerative change at the base of the second proximal phalanx. EXAM GEN: VSS, no fevers, obese HEENT: Unremarkable NECK: WNL CVS: RRR, CHEST:Equal chest rise bilaterally, without dyspnea ABD: Soft, NT, EXT: Warm, R-2nd toe gangrenous changes ID ASSESSMENT 56 yo M admit with: 1. Right foot cellulitis with second toe wound, probable osteomyelitis. * MRI Foot: 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 and there is a toe tip ulceration. 2. Poorly-controlled diabetes. 3. Hypertension. 4. Peripheral arterial disease without evidence significant stenosis * 01/27/17 Arterial Duplex: Mildly dampened wave form in the right dorsalis pedis artery, possibly related to intrinsic disease. 5. Daily ETOH = Beer, watch for ETOH withdrawal Sxs ( ? ) MRSA Nares INVASIVES: PIV CURRENT ABX: =>Vanco IV + Levaquin PO ID RECOMMENDATIONS Check nares for MRSA ordered -- not resulted May DC home on PO ABX when cleared by primary MD * 1. Bactrim DS 1 Tab PO BID x 35 days with full glass H20 to cover toe osteomyelitis . . Problems: Consultation Date/Type/Reason Admit Date/Time Jan 26, 2017 at 02:37 Initial Consult Date 01/27/17 Type of Consultation: ID Exam/Review of Systems Vital Signs Vitals Vital Signs Date Time Temp Pulse Resp B/P Pulse Ox O2 Delivery O2 Flow Rate FiO2 01/31/17 09:42 68 124/73 01/31/17 08:01 97.8 20 98 Room Air Intake and Output 01/30/17 01/30/17 01/31/17 14:59 22:59 06:59 Intake Total 500 ml 740 ml 825 ml Output Total 800 ml 1000 ml Balance 500 ml -60 ml -175 ml Results Result Diagram: 01/27/17 0543 01/30/17 0352 Results 24 hrs Laboratory Tests Test 01/30/17 17:59 01/30/17 20:51 01/31/17 02:27 01/31/17 08:23 Bedside Glucose 98 194 135 108 Test 01/31/17 12:25 Bedside Glucose 215 Medications Medications Current Medications Amlodipine Besylate (Norvasc) 10 mg DAILY PO Last administered on 01/31/17 08: 18; Admin Dose 10 MG; Start 01/26/17 at 09:00 Gemfibrozil (Lopid) 600 mg BID PO Last administered on 01/31/17 08:18; Admin Dose 600 MG; Start 01/26/17 at 09:00 Miscellaneous Information 1 ea NOTE XX ; Start 01/26/17 at 09:00 Glucose (Glutose) 15 gm Q15M PRN PO DECREASED GLUCOSE; Start 01/26/17 at 09:00 Glucose (Glutose) 22.5 gm Q15M PRN PO DECREASED GLUCOSE; Start 01/26/17 at 09: 00 Dextrose (D50w Syringe) 25 ml Q15M PRN IV DECREASED GLUCOSE; Start 01/26/17 at 09:00 Dextrose (D50w Syringe) 50 ml Q15M PRN IV DECREASED GLUCOSE; Start 01/26/17 at 09:00 Glucagon (Glucagen) 1 mg Q15M PRN IM DECREASED GLUCOSE; Start 01/26/17 at 09:00 Glucose (Glutose) 15 gm Q15M PRN BUCCAL DECREASED GLUCOSE; Start 01/26/17 at 09 :00 Ondansetron HCl (Zofran Inj) 4 mg Q6H PRN IV NAUSEA AND/OR VOMITING; Start at 10:30 Acetaminophen (Tylenol Tab) 650 mg Q6H PRN PO PAIN LEVEL 1-3 OR FEVER; Start at 10:30 Acetaminophen/ Hydrocodone Bitart ([place] (5/325)) 1 tab Q6H PRN PO MODERATE PAIN LEVEL 4-6; Start 01/26/17 at 10:30 Acetaminophen/ Hydrocodone Bitart ([place] (5/325)) 2 tab Q6H PRN PO SEVERE PAIN LEVEL 7-10; Start 01/26/17 at 10:30 Docusate Sodium (Colace) 100 mg Q12H PRN PO CONSTIPATION; Start 01/26/17 at 10: 30 Zolpidem Tartrate (Ambien) 5 mg QHS PRN PO SLEEP; Start 01/26/17 at 10:30 Enoxaparin Sodium (Lovenox) 40 mg DAILY SC Last administered on 01/31/17 08:39 ; Admin Dose 40 MG; Start 01/27/17 at 09:00 Diagnostic Test (Pha) (Accu-Chek) 1 ea 02 XX Last administered on 01/27/17 01: 54; Admin Dose 1 EA; Start 01/27/17 at 02:00 Levofloxacin (Levaquin) 500 mg DAILY@06 PO Last administered on 01/31/17 05:15 ; Admin Dose 500 MG; Start 01/28/17 at 06:00 Famotidine 20 mg 20 mg Q12 PO Last administered on 01/31/17 08:18; Admin Dose 20 MG; Start 01/27/17 at 21:00 Vancomycin HCl/ Sodium Chloride (Vancocin/NS) 500 ml @ 125 mls/hr Q12H IVPB Last administered on 01/31/17 05:15; Admin Dose 125 MLS/HR; Start 01/28/17 at 17 :00 Benazepril HCl (Lotensin) 10 mg DAILY PO Last administered on 01/31/17 08:18; Admin Dose 10 MG; Start 01/28/17 at 16:00 Insulin Glargine (Lantus) 15 unit DAILY SC Last administered on 01/31/17 08:39 ; Admin Dose 15 UNIT; Start 01/29/17 at 20:00 ASHUTOSH AMATO NP Jan 31, 2017 17:42
[2017-01-31 19:59] VITALS: BP 145/76; RESP 18
[2017-02-01] MEDS: ACCU-CHEK XX SCH (02:00)
[2017-02-01 02:22] VITALS: BP 132/81; RESP 16
[2017-02-01] MEDS: LEVOFLOXACIN 500 MG TAB PO SCH (05:56)
[2017-02-01] MEDS: VANCOMYCIN 1.75 GM in NS 500 ML IVPB SCH ×2 (05:56→17:45)
[2017-02-01 06:46] LABS: CREATININE 0.73 mg/dl (0.61-1.24)
[2017-02-01 07:19] VITALS: BP 162/83; RESP 20
[2017-02-01] MEDS: INSULIN ASPART [NOVOLOG] 3 ML PEN SC SCH ×7 (08:10→20:56)
[2017-02-01] MEDS: INSULIN GLARGINE [LANtus] 3 ML PEN SC SCH (08:10)
[2017-02-01] MEDS: AMLODIPINE 10 MG TAB PO SCH (09:13)
[2017-02-01] MEDS: BENAZEPRIL 10 MG TAB PO SCH (09:13)
[2017-02-01] MEDS: GEMFIBROZIL 600 MG TAB PO SCH ×2 (09:13→20:55)
[2017-02-01] MEDS: FAMOTIDINE 20 MG TAB PO SCH ×2 (09:14→20:55)
[2017-02-01] MEDS: ENOXAPARIN 40 MG/0.4 ML SYG SC SCH (09:17)
--- NOTE | 2017-02-01 10:17 | PN ---
Date/Time of Note Date/Time of Note DATE: 02/01/17 TIME: 10:14 Assessment/Plan VTE Prophylaxis VTE Prophylaxis Intervention: LMWH Lines/Catheters IV C[facility]ter Type (from [facility] Urinary Cath still in place: No Assessment/Plan Chief Complaint/Hosp Course 56 y/o with 1. Right 2nd toe cellulitis with osteomyelitis 2. Diabetes, uncontrolled, off insulin for last 6 months. 3. Hypertension. not controlled 4. Hypercholesteremia. 5. History of osteomyelitis, status post amputation of right 4th toe. Recs - On iv Vancomycin/Levaquin po per I.D recs - OR tmw per Dr Meehan - c/w Lantus 15 and Novolog 5 tid - increase Benazepril to 20 - GI/DVT prophylaxsis Problems: Subjective 24 Hr Interval Summary Free Text/Dictation Denies any complains Due for surgery tmw SBP elevated Exam/Review of Systems Vital Signs Vitals Vital Signs Date Time Temp Pulse Resp B/P Pulse Ox O2 Delivery O2 Flow Rate FiO2 02/01/17 07:19 97.5 60 20 162/83 99 01/31/17 08:01 Room Air Intake and Output 01/31/17 01/31/17 02/01/17 15:00 23:00 07:00 Intake Total 375 ml 500 ml 1245 ml Output Total 2375 ml Balance 375 ml 500 ml -1130 ml Results Result Diagram: 02/01/17 0518 Results 24 hrs Laboratory Tests Test 01/31/17 12:25 01/31/17 17:43 01/31/17 21:08 02/01/17 05:18 Bedside Glucose 215 160 161 Blood Urea Nitrogen 12 Creatinine 0.73 Test 02/01/17 08:02 Bedside Glucose 169 Medications Medications Current Medications Amlodipine Besylate (Norvasc) 10 mg DAILY PO Last administered on 02/01/17 09: 13; Admin Dose 10 MG; Start 01/26/17 at 09:00 Gemfibrozil (Lopid) 600 mg BID PO Last administered on 02/01/17 09:13; Admin Dose 600 MG; Start 01/26/17 at 09:00 Miscellaneous Information 1 ea NOTE XX ; Start 01/26/17 at 09:00 Glucose (Glutose) 15 gm Q15M PRN PO DECREASED GLUCOSE; Start 01/26/17 at 09:00 Glucose (Glutose) 22.5 gm Q15M PRN PO DECREASED GLUCOSE; Start 01/26/17 at 09: 00 Dextrose (D50w Syringe) 25 ml Q15M PRN IV DECREASED GLUCOSE; Start 01/26/17 at 09:00 Dextrose (D50w Syringe) 50 ml Q15M PRN IV DECREASED GLUCOSE; Start 01/26/17 at 09:00 Glucagon (Glucagen) 1 mg Q15M PRN IM DECREASED GLUCOSE; Start 01/26/17 at 09:00 Glucose (Glutose) 15 gm Q15M PRN BUCCAL DECREASED GLUCOSE; Start 01/26/17 at 09 :00 Ondansetron HCl (Zofran Inj) 4 mg Q6H PRN IV NAUSEA AND/OR VOMITING; Start at 10:30 Acetaminophen (Tylenol Tab) 650 mg Q6H PRN PO PAIN LEVEL 1-3 OR FEVER; Start at 10:30 Acetaminophen/ Hydrocodone Bitart ([place] (5/325)) 1 tab Q6H PRN PO MODERATE PAIN LEVEL 4-6; Start 01/26/17 at 10:30 Acetaminophen/ Hydrocodone Bitart ([place] (5/325)) 2 tab Q6H PRN PO SEVERE PAIN LEVEL 7-10; Start 01/26/17 at 10:30 Docusate Sodium (Colace) 100 mg Q12H PRN PO CONSTIPATION; Start 01/26/17 at 10: 30 Zolpidem Tartrate (Ambien) 5 mg QHS PRN PO SLEEP; Start 01/26/17 at 10:30 Enoxaparin Sodium (Lovenox) 40 mg DAILY SC Last administered on 02/01/17 09:17 ; Admin Dose 40 MG; Start 01/27/17 at 09:00 Diagnostic Test (Pha) (Accu-Chek) 1 ea 02 XX Last administered on 01/27/17 01: 54; Admin Dose 1 EA; Start 01/27/17 at 02:00 Levofloxacin (Levaquin) 500 mg DAILY@06 PO Last administered on 02/01/17 05:56 ; Admin Dose 500 MG; Start 01/28/17 at 06:00 Famotidine 20 mg 20 mg Q12 PO Last administered on 02/01/17 09:14; Admin Dose 20 MG; Start 01/27/17 at 21:00 Vancomycin HCl/ Sodium Chloride (Vancocin/NS) 500 ml @ 125 mls/hr Q12H IVPB Last administered on 02/01/17 05:56; Admin Dose 125 MLS/HR; Start 01/28/17 at 17 :00 Insulin Glargine (Lantus) 15 unit DAILY SC Last administered on 02/01/17 08:10 ; Admin Dose 15 UNIT; Start 01/29/17 at 20:00 Benazepril HCl (Lotensin) 20 mg DAILY PO ; Start 02/02/17 at 09:00; Status UNNAZIA CARRANZA MD Feb 01, 2017 10:16
--- NOTE | 2017-02-01 12:40 | CONS ---
Date/Time of Note Date/Time of Note DATE: 02/01/17 TIME: 12:39 Assessment/Plan Assessment/Plan Chief Complaint/Hosp Course ID PROGRESS NOTE CURRENT ABX: => IV vancomycin and oral Levaquin. 24H INTERVAL SUMMARY * Per notes: Podiatry plans for toe amputation on Wednesday02/02/2017 * No new issues No fevers, VSS, NAD * MRI Left foot: IMPRESSION: * 1. 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 and there is a toe tip ulceration. * 2. Preexisting degenerative change at the base of the second proximal phalanx. EXAM GEN: VSS, no fevers, obese HEENT: Unremarkable NECK: WNL CVS: RRR, CHEST:Equal chest rise bilaterally, without dyspnea ABD: Soft, NT, EXT: Warm, R-2nd toe gangrenous changes ID ASSESSMENT 56 yo M admit with: 1. Right foot cellulitis with second toe wound, probable osteomyelitis. * MRI Foot: 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 and there is a toe tip ulceration. 2. Poorly-controlled diabetes. 3. Hypertension. 4. Peripheral arterial disease without evidence significant stenosis * 01/27/17 Arterial Duplex: Mildly dampened wave form in the right dorsalis pedis artery, possibly related to intrinsic disease. 5. Daily ETOH = Beer, watch for ETOH withdrawal Sxs ( - ) MRSA Nares INVASIVES: PIV CURRENT ABX: =>Vanco IV + Levaquin PO ID RECOMMENDATIONS May DC home on PO ABX when cleared by primary MD * 1. Bactrim DS 1 Tab PO BID x 28 days with full glass H20 to cover toe osteomyelitis . . Problems: Consultation Date/Type/Reason Admit Date/Time Jan 26, 2017 at 02:37 Initial Consult Date 01/27/17 Type of Consultation: ID Exam/Review of Systems Vital Signs Vitals Vital Signs Date Time Temp Pulse Resp B/P Pulse Ox O2 Delivery O2 Flow Rate FiO2 02/01/17 07:19 97.5 60 20 162/83 99 01/31/17 08:01 Room Air Intake and Output 01/31/17 01/31/17 02/01/17 15:00 23:00 07:00 Intake Total 375 ml 500 ml 1245 ml Output Total 2375 ml Balance 375 ml 500 ml -1130 ml Results Result Diagram: 02/01/17 0518 Results 24 hrs Laboratory Tests Test 01/31/17 17:43 01/31/17 21:08 02/01/17 05:18 02/01/17 08:02 Bedside Glucose 160 161 169 Blood Urea Nitrogen 12 Creatinine 0.73 Medications Medications Current Medications Amlodipine Besylate (Norvasc) 10 mg DAILY PO Last administered on 02/01/17 09: 13; Admin Dose 10 MG; Start 01/26/17 at 09:00 Gemfibrozil (Lopid) 600 mg BID PO Last administered on 02/01/17 09:13; Admin Dose 600 MG; Start 01/26/17 at 09:00 Miscellaneous Information 1 ea NOTE XX ; Start 01/26/17 at 09:00 Glucose (Glutose) 15 gm Q15M PRN PO DECREASED GLUCOSE; Start 01/26/17 at 09:00 Glucose (Glutose) 22.5 gm Q15M PRN PO DECREASED GLUCOSE; Start 01/26/17 at 09: 00 Dextrose (D50w Syringe) 25 ml Q15M PRN IV DECREASED GLUCOSE; Start 01/26/17 at 09:00 Dextrose (D50w Syringe) 50 ml Q15M PRN IV DECREASED GLUCOSE; Start 01/26/17 at 09:00 Glucagon (Glucagen) 1 mg Q15M PRN IM DECREASED GLUCOSE; Start 01/26/17 at 09:00 Glucose (Glutose) 15 gm Q15M PRN BUCCAL DECREASED GLUCOSE; Start 01/26/17 at 09 :00 Ondansetron HCl (Zofran Inj) 4 mg Q6H PRN IV NAUSEA AND/OR VOMITING; Start at 10:30 Acetaminophen (Tylenol Tab) 650 mg Q6H PRN PO PAIN LEVEL 1-3 OR FEVER; Start at 10:30 Acetaminophen/ Hydrocodone Bitart ([place] (5/325)) 1 tab Q6H PRN PO MODERATE PAIN LEVEL 4-6; Start 01/26/17 at 10:30 Acetaminophen/ Hydrocodone Bitart ([place] (5/325)) 2 tab Q6H PRN PO SEVERE PAIN LEVEL 7-10; Start 01/26/17 at 10:30 Docusate Sodium (Colace) 100 mg Q12H PRN PO CONSTIPATION; Start 01/26/17 at 10: 30 Zolpidem Tartrate (Ambien) 5 mg QHS PRN PO SLEEP; Start 01/26/17 at 10:30 Enoxaparin Sodium (Lovenox) 40 mg DAILY SC Last administered on 02/01/17 09:17 ; Admin Dose 40 MG; Start 01/27/17 at 09:00 Diagnostic Test (Pha) (Accu-Chek) 1 ea 02 XX Last administered on 01/27/17 01: 54; Admin Dose 1 EA; Start 01/27/17 at 02:00 Levofloxacin (Levaquin) 500 mg DAILY@06 PO Last administered on 02/01/17 05:56 ; Admin Dose 500 MG; Start 01/28/17 at 06:00 Famotidine 20 mg 20 mg Q12 PO Last administered on 02/01/17 09:14; Admin Dose 20 MG; Start 01/27/17 at 21:00 Vancomycin HCl/ Sodium Chloride (Vancocin/NS) 500 ml @ 125 mls/hr Q12H IVPB Last administered on 02/01/17 05:56; Admin Dose 125 MLS/HR; Start 01/28/17 at 17 :00 Insulin Glargine (Lantus) 15 unit DAILY SC Last administered on 02/01/17 08:10 ; Admin Dose 15 UNIT; Start 01/29/17 at 20:00 Benazepril HCl (Lotensin) 20 mg DAILY PO ; Start 02/02/17 at 09:00 ASHUTOSH AMATO NP Feb 01, 2017 12:40
[2017-02-01 14:00] VITALS: BP 141/80; RESP 18
--- NOTE | 2017-02-01 18:40 | PN ---
Date/Time of Note Date/Time of Note DATE: 01/31/17 TIME: 18:31 Assessment/Plan Lines/Catheters IV Catheter Type (from [facility]): Saline Lock Junior in Place (from [facility]): No Assessment/Plan Chief Complaint/Hosp Course -Bilateral lower extremity atherosclerosis with right lower extremity diabetic foot infection second toe gangrene: It seems the patient does has some component of atherosclerosis; however, the patient does have palpable pedal pulse in which his infection likely related to his diabetes and not to a flow- limiting stenosis. Patient is cleared from Vascular for debridement/amputation -Upon his noninvasive vascular studies no flow limiting stenosis was identified -Continue local wound care per our podiatry colleagues. -Continue with antibiotics. -I discussed findings, plan and management with the patient, he understands. -Optimize vascular status (BP meds, diet, nutrition, exercise, sugar control, antiplatelets). -Thank you for allowing us to partake in the care of your patient. Please call with any questions. Problems: Subjective 24 Hr Interval Summary no new vascular events overnight Exam/Review of Systems Vital Signs Vitals Vital Signs Date Time Temp Pulse Resp B/P Pulse Ox O2 Delivery O2 Flow Rate FiO2 02/01/17 14:00 97.4 66 18 141/80 97 01/31/17 08:01 Room Air Intake and Output 01/31/17 01/31/17 02/01/17 15:00 23:00 07:00 Intake Total 375 ml 500 ml 1245 ml Output Total 2375 ml Balance 375 ml 500 ml -1130 ml Exam Free Text/Dictation GENERAL APPEARANCE: Alert and oriented x3. LUNGS: Clear to auscultation bilaterally HEART: S1, S2 present ABDOMEN: Soft, nontender, nondistended. Bowel sounds positive. EXTREMITIES: Right lower extremity, palpable femoral pulse, palpable pedal pulse. Motor and sensory intact. Capillary refill 3 seconds. Fourth toe amputation site well healed. foot dressing intact Left lower extremity, palpable femoral pulse, palpable pedal pulse. Motor and sensory intact. Capillary refill 3 seconds. Results Result Diagram: 02/01/17 0518 FINN BURGESS MD Feb 01, 2017 18:40
[2017-02-02 02:00] VITALS: BP 139/84; RESP 20
[2017-02-02] MEDS: ACCU-CHEK XX SCH (02:00)
[2017-02-02] MEDS: LEVOFLOXACIN 500 MG TAB PO SCH (05:22)
[2017-02-02] MEDS: VANCOMYCIN 1.75 GM in NS 500 ML IVPB SCH ×2 (05:22→17:07)
[2017-02-02 07:25] VITALS: BP 146/87; RESP 18
[2017-02-02] MEDS: INSULIN ASPART [NOVOLOG] 3 ML PEN SC SCH ×7 (08:15→20:33)
[2017-02-02] MEDS: INSULIN GLARGINE [LANtus] 3 ML PEN SC SCH (08:36)
[2017-02-02] MEDS: GEMFIBROZIL 600 MG TAB PO SCH ×2 (08:42→20:32)
[2017-02-02] MEDS: AMLODIPINE 10 MG TAB PO SCH (08:43)
[2017-02-02] MEDS: FAMOTIDINE 20 MG TAB PO SCH ×2 (08:43→20:33)
[2017-02-02] MEDS: BENAZEPRIL 20 MG TAB PO SCH (08:43)
[2017-02-02] MEDS: ENOXAPARIN 40 MG/0.4 ML SYG SC SCH (11:32)
[2017-02-02 14:43] VITALS: BP 123/72; RESP 18
--- NOTE | 2017-02-02 18:36 | PN ---
Date/Time of Note Date/Time of Note DATE: 02/02/17 TIME: 18:34 Assessment/Plan VTE Prophylaxis VTE Prophylaxis Intervention: other Lines/Catheters IV Catheter Type (from [facility]): Saline Lock Urinary Cath still in place: No Assessment/Plan Chief Complaint/Hosp Course 1. 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 and there is a toe tip ulceration. 2 DJD 3 DM PLAN PER ID AND SURGERY Problems: Subjective 24 Hr Interval Summary Respiratory: no complaints Cardiovascular: no complaints Gastrointestinal: no complaints Exam/Review of Systems Vital Signs Vitals Vital Signs Date Time Temp Pulse Resp B/P Pulse Ox O2 Delivery O2 Flow Rate FiO2 02/02/17 14:43 98.1 61 18 123/72 99 01/31/17 08:01 Room Air Intake and Output 02/01/17 02/01/17 02/02/17 15:00 23:00 07:00 Intake Total 375 ml 960 ml 1125 ml Output Total 1600 ml 2000 ml Balance 375 ml -640 ml -875 ml Exam Neck: supple Respiratory: clear to auscultation Cardiovascular: regular rate and rhythm Gastrointestinal: soft Musculoskeletal: nl extremities to inspection Extremities: other (NO CHANGE) Results Result Diagram: 02/01/17 0518 Results 24 hrs Laboratory Tests Test 02/01/17 20:54 02/02/17 03:43 02/02/17 08:02 02/02/17 12:04 Bedside Glucose 145 99 164 Vancomycin Level Trough 18.7 Test 02/02/17 17:06 Bedside Glucose 96 Medications Medications Current Medications Amlodipine Besylate (Norvasc) 10 mg DAILY PO Last administered on 02/02/17 08: 43; Admin Dose 10 MG; Start 01/26/17 at 09:00 Gemfibrozil (Lopid) 600 mg BID PO Last administered on 02/02/17 08:42; Admin Dose 600 MG; Start 01/26/17 at 09:00 Miscellaneous Information 1 ea NOTE XX ; Start 01/26/17 at 09:00 Glucose (Glutose) 15 gm Q15M PRN PO DECREASED GLUCOSE; Start 01/26/17 at 09:00 Glucose (Glutose) 22.5 gm Q15M PRN PO DECREASED GLUCOSE; Start 01/26/17 at 09: 00 Dextrose (D50w Syringe) 25 ml Q15M PRN IV DECREASED GLUCOSE; Start 01/26/17 at 09:00 Dextrose (D50w Syringe) 50 ml Q15M PRN IV DECREASED GLUCOSE; Start 01/26/17 at 09:00 Glucagon (Glucagen) 1 mg Q15M PRN IM DECREASED GLUCOSE; Start 01/26/17 at 09:00 Glucose (Glutose) 15 gm Q15M PRN BUCCAL DECREASED GLUCOSE; Start 01/26/17 at 09 :00 Ondansetron HCl (Zofran Inj) 4 mg Q6H PRN IV NAUSEA AND/OR VOMITING; Start at 10:30 Acetaminophen (Tylenol Tab) 650 mg Q6H PRN PO PAIN LEVEL 1-3 OR FEVER; Start at 10:30 Acetaminophen/ Hydrocodone Bitart ([place] (5/325)) 1 tab Q6H PRN PO MODERATE PAIN LEVEL 4-6; Start 01/26/17 at 10:30 Acetaminophen/ Hydrocodone Bitart ([place] (5/325)) 2 tab Q6H PRN PO SEVERE PAIN LEVEL 7-10; Start 01/26/17 at 10:30 Docusate Sodium (Colace) 100 mg Q12H PRN PO CONSTIPATION; Start 01/26/17 at 10: 30 Zolpidem Tartrate (Ambien) 5 mg QHS PRN PO SLEEP; Start 01/26/17 at 10:30 Enoxaparin Sodium (Lovenox) 40 mg DAILY SC Last administered on 02/02/17 11:32 ; Admin Dose 40 MG; Start 01/27/17 at 09:00 Diagnostic Test (Pha) (Accu-Chek) 1 ea 02 XX Last administered on 01/27/17 01: 54; Admin Dose 1 EA; Start 01/27/17 at 02:00 Levofloxacin (Levaquin) 500 mg DAILY@06 PO Last administered on 02/02/17 05:22 ; Admin Dose 500 MG; Start 01/28/17 at 06:00 Famotidine 20 mg 20 mg Q12 PO Last administered on 02/02/17 08:43; Admin Dose 20 MG; Start 01/27/17 at 21:00 Vancomycin HCl/ Sodium Chloride (Vancocin/NS) 500 ml @ 125 mls/hr Q12H IVPB Last administered on 02/02/17 17:07; Admin Dose 125 MLS/HR; Start 01/28/17 at 17 :00 Insulin Glargine (Lantus) 15 unit DAILY SC Last administered on 02/02/17 08:36 ; Admin Dose 15 UNIT; Start 01/29/17 at 20:00 Benazepril HCl 20 mg 20 mg DAILY PO Last administered on 02/02/17 08:43; Admin Dose 20 MG; Start 02/02/17 at 09:00 Dextrose/Sodium Chloride (D5-1/2ns) 1,000 ml @ 30 mls/hr Q24H IV ; Start at 23:00; Stop 02/03/17 at 20:00 OSMAR SWAIN MD Feb 02, 2017 18:36
[2017-02-02 20:00] VITALS: BP 162/96; RESP 18
[2017-02-02 21:00] VITALS: BP 150/86; PULSE 62; RESP 18
--- NOTE | 2017-02-02 21:18 | PN ---
DATE: 02/02/2017 SUBJECTIVE DATA: No acute changes. Patient is alert, feels good, looks comfortable. Denies pain, no fevers. LABORATORY AND DIAGNOSTIC DATA: No labs this morning. ANTIMICROBIALS: 1. Vancomycin. 2. Levaquin. PHYSICAL EXAMINATION: GENERAL: Well-developed, middle-aged, man, who is alert, in no distress. HEENT: Head atraumatic, normocephalic. Sclerae anicteric. Buccal mucosa pink. NECK: Supple. CHEST: Rise symmetrical. Breath sounds clear. HEART: S1, S2. ABDOMEN: Soft, bowel sounds present. EXTREMITIES: With right 2nd distal toe wound. ASSESSMENT: 1. Right 2nd toe osteomyelitis. 2. Diabetes, with diabetic neuropathy. 3. Hypertension. PLAN: Patient remains stable. Continue present care. Antibiotics. Pending Surgical intervention. Possible toe amputation. Dictated By: Miguel Ángel Briggs NP /regino/nikia /Document#: [id number]
[2017-02-02] MEDS ORDERED: DEXTROSE 5%-0.45% NACL 1,000 ML IV SCH (23:00)
--- NOTE | 2017-02-02 23:35 | PN ---
Date/Time of Note Date/Time of Note DATE: 02/02/17 TIME: 23:35 Assessment/Plan Lines/Catheters IV Catheter Type (from [facility]): Saline Lock Junior in Place (from [facility]): No Exam/Review of Systems Vital Signs Vitals Vital Signs Date Time Temp Pulse Resp B/P Pulse Ox O2 Delivery O2 Flow Rate FiO2 02/02/17 21:00 62 18 150/86 02/02/17 20:00 98.2 96 01/31/17 08:01 Room Air Intake and Output 02/01/17 02/01/17 02/02/17 15:00 23:00 07:00 Intake Total 375 ml 960 ml 1125 ml Output Total 1600 ml 2000 ml Balance 375 ml -640 ml -875 ml Results Result Diagram: 02/01/17 0518 HIGINIO ECHEVARRIA DPM Feb 02, 2017 23:35
[2017-02-03] MEDS: ACCU-CHEK XX SCH (02:00)
[2017-02-03] MEDS: VANCOMYCIN 1.75 GM in NS 500 ML IVPB SCH ×2 (05:36→17:14)
[2017-02-03] MEDS: LEVOFLOXACIN 500 MG TAB PO SCH (05:36)
[2017-02-03 07:23] VITALS: BP 153/79; RESP 18
[2017-02-03] MEDS: INSULIN ASPART [NOVOLOG] 3 ML PEN SC SCH ×7 (08:15→20:04)
[2017-02-03] MEDS: FAMOTIDINE 20 MG TAB PO SCH ×2 (08:16→20:03)
[2017-02-03] MEDS: BENAZEPRIL 20 MG TAB PO SCH (08:16)
[2017-02-03] MEDS: AMLODIPINE 10 MG TAB PO SCH (08:16)
[2017-02-03] MEDS: GEMFIBROZIL 600 MG TAB PO SCH ×2 (08:16→20:03)
[2017-02-03] MEDS: INSULIN GLARGINE [LANtus] 3 ML PEN SC SCH (08:24)
[2017-02-03] MEDS: ENOXAPARIN 40 MG/0.4 ML SYG SC SCH (08:25)
--- NOTE | 2017-02-03 13:19 | PN ---
DATE: 02/03/2017 SUBJECTIVE DATA: No acute changes. The patient is lying comfortably in bed, afebrile. He is on Vanco and Levaquin. PHYSICAL EXAMINATION: GENERAL: This is a well-developed, well-nourished, middle-aged, man. The patient is alert, in no distress. HEENT: Head atraumatic, normocephalic. Sclerae anicteric. NECK: Supple. CHEST: Rise symmetrical. Breath sounds clear. HEART: S1, S2. ABDOMEN: Soft, bowel sounds present. EXTREMITIES: Without cyanosis. Right second toe with wound. ASSESSMENT: 1. Right foot cellulitis with evidence of osteomyelitis with second toe as per MRI. 2. Diabetes. 3. Hypertension. 4. Diabetic neuropathy. PLAN: 1. The patient remains stable. 2. He is scheduled for debridement and possible amputation of the toe. 3. Continue present care and antibiotics. Dictated By: Miguel Ángel Briggs NP /regino/tevin /Document#: [id number] JORGE LUIS
[2017-02-03 14:37] VITALS: BP 156/82; RESP 19
[2017-02-03 20:01] VITALS: BP 159/84; RESP 20
--- NOTE | 2017-02-03 23:29 | PN ---
Date/Time of Note Date/Time of Note DATE: 02/03/17 TIME: 23:29 Assessment/Plan VTE Prophylaxis VTE Prophylaxis Intervention: other Lines/Catheters IV C[facility] Type (from [facility]): Saline Lock Urinary Cath still in place: No Assessment/Plan Chief Complaint/Hosp Course 1. 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 and there is a toe tip ulceration. 2 DJD 3 DM PLAN PER ID AND SURGERY Problems: Subjective 24 Hr Interval Summary Cardiovascular: no complaints Gastrointestinal: no complaints Genitourinary: no complaints Exam/Review of Systems Vital Signs Vitals Vital Signs Date Time Temp Pulse Resp B/P Pulse Ox O2 Delivery O2 Flow Rate FiO2 02/03/17 20:01 98.1 68 20 159/84 98 01/31/17 08:01 Room Air Intake and Output 02/02/17 02/02/17 02/03/17 15:00 23:00 07:00 Intake Total 375 ml 2100 ml 725 ml Output Total 2100 ml 1900 ml Balance 375 ml 0 ml -1175 ml Exam Respiratory: clear to auscultation Cardiovascular: regular rate and rhythm Gastrointestinal: soft Results Result Diagram: 02/01/17 0518 Results 24 hrs Laboratory Tests Test 02/03/17 08:18 02/03/17 12:24 02/03/17 17:13 02/03/17 20:03 Bedside Glucose 120 253 H 108 130 Medications Medications Current Medications Amlodipine Besylate (Norvasc) 10 mg DAILY PO Last administered on 02/03/17 08: 16; Admin Dose 10 MG; Start 01/26/17 at 09:00 Gemfibrozil (Lopid) 600 mg BID PO Last administered on 02/03/17 20:03; Admin Dose 600 MG; Start 01/26/17 at 09:00 Miscellaneous Information 1 ea NOTE XX ; Start 01/26/17 at 09:00 Glucose (Glutose) 15 gm Q15M PRN PO DECREASED GLUCOSE; Start 01/26/17 at 09:00 Glucose (Glutose) 22.5 gm Q15M PRN PO DECREASED GLUCOSE; Start 01/26/17 at 09: 00 Dextrose (D50w Syringe) 25 ml Q15M PRN IV DECREASED GLUCOSE; Start 01/26/17 at 09:00 Dextrose (D50w Syringe) 50 ml Q15M PRN IV DECREASED GLUCOSE; Start 01/26/17 at 09:00 Glucagon (Glucagen) 1 mg Q15M PRN IM DECREASED GLUCOSE; Start 01/26/17 at 09:00 Glucose (Glutose) 15 gm Q15M PRN BUCCAL DECREASED GLUCOSE; Start 01/26/17 at 09 :00 Ondansetron HCl (Zofran Inj) 4 mg Q6H PRN IV NAUSEA AND/OR VOMITING; Start at 10:30 Acetaminophen (Tylenol Tab) 650 mg Q6H PRN PO PAIN LEVEL 1-3 OR FEVER; Start at 10:30 Acetaminophen/ Hydrocodone Bitart ([place] (5/325)) 1 tab Q6H PRN PO MODERATE PAIN LEVEL 4-6; Start 01/26/17 at 10:30 Acetaminophen/ Hydrocodone Bitart ([place] (5/325)) 2 tab Q6H PRN PO SEVERE PAIN LEVEL 7-10; Start 01/26/17 at 10:30 Docusate Sodium (Colace) 100 mg Q12H PRN PO CONSTIPATION; Start 01/26/17 at 10: 30 Zolpidem Tartrate (Ambien) 5 mg QHS PRN PO SLEEP; Start 01/26/17 at 10:30 Enoxaparin Sodium (Lovenox) 40 mg DAILY SC Last administered on 02/03/17 08:25 ; Admin Dose 40 MG; Start 01/27/17 at 09:00 Diagnostic Test (Pha) (Accu-Chek) 1 ea 02 XX Last administered on 01/27/17 01: 54; Admin Dose 1 EA; Start 01/27/17 at 02:00 Levofloxacin (Levaquin) 500 mg DAILY@06 PO Last administered on 02/03/17 05:36 ; Admin Dose 500 MG; Start 01/28/17 at 06:00 Famotidine 20 mg 20 mg Q12 PO Last administered on 02/03/17 20:03; Admin Dose 20 MG; Start 01/27/17 at 21:00 Vancomycin HCl/ Sodium Chloride (Vancocin/NS) 500 ml @ 125 mls/hr Q12H IVPB Last administered on 02/03/17 17:14; Admin Dose 125 MLS/HR; Start 01/28/17 at 17 :00 Insulin Glargine (Lantus) 15 unit DAILY SC Last administered on 02/03/17 08:24 ; Admin Dose 15 UNIT; Start 01/29/17 at 20:00 Benazepril HCl (Lotensin) 20 mg DAILY PO Last administered on 02/03/17 08:16; Admin Dose 20 MG; Start 02/02/17 at 09:00 Miscellaneous Information (*Rx Drug Level Order Reminder*) VANCOMYCIN TROUGH ON ... ONCE ONCE XX ; Start 02/04/17 at 04:00; Stop 02/04/17 at 04:01 OSMAR SWAIN MD Feb 03, 2017 23:29
--- NOTE | 2017-02-03 23:59 | PN ---
Date/Time of Note Date/Time of Note DATE: 02/03/17 TIME: 23:59 Assessment/Plan Lines/Catheters IV Catheter Type (from [facility]): Saline Lock Junior in Place (from [facility]): No Exam/Review of Systems Vital Signs Vitals Vital Signs Date Time Temp Pulse Resp B/P Pulse Ox O2 Delivery O2 Flow Rate FiO2 02/03/17 20:01 98.1 68 20 159/84 98 01/31/17 08:01 Room Air Intake and Output 02/02/17 02/02/17 02/03/17 15:00 23:00 07:00 Intake Total 375 ml 2100 ml 725 ml Output Total 2100 ml 1900 ml Balance 375 ml 0 ml -1175 ml Results Result Diagram: 02/01/17 0518 HIGINIO ECHEVARRIA DPM Feb 03, 2017 23:59
[2017-02-04] VITALS (11 sets, daily range): BP systolic 107–135; BP diastolic 65–80; PULSE 58–66; RESP 13–21
[2017-02-04] MEDS: ACCU-CHEK XX SCH (01:29)
[2017-02-04] MEDS: VANCOMYCIN 1.75 GM in NS 500 ML IVPB SCH (04:49)
[2017-02-04] MEDS: LEVOFLOXACIN 500 MG TAB PO SCH (05:32)
[2017-02-04] MEDS ORDERED: BUPIVACAINE 0.5% (SDV) 30 ML INJ ONE (07:06)
[2017-02-04] MEDS ORDERED: LIDOCAINE 2% (MDV) 20 ML INJ ONE (07:06)
[2017-02-04] MEDS ORDERED: POLYMYXIN/BACITRACIN 1L IRRIG ONE (07:06)
--- NOTE | 2017-02-04 07:53 | HPN ---
Date/Time of Note Date/Time of Note DATE: 02/04/17 TIME: 07:53 Interval H&P Admission Note Pt. seen H&P reviewed: No system changes HIGINIO ECHEVARRIA DPM Feb 04, 2017 07:53
[2017-02-04] MEDS ORDERED: FENTAnyl 50 MCG/ML VIAL ONE (08:02)
[2017-02-04] MEDS ORDERED: PROPOFOL 20 ML ONE (08:02)
[2017-02-04] MEDS ORDERED: MIDAZOLAM 1 MG/ML 2 ML INJ ONE (08:02)
[2017-02-04] MEDS ORDERED: LIDOCAINE 2% (SDV) 5 ML INJ ONE (08:02)
[2017-02-04] MEDS ORDERED: PROCHLORPERAZINE 10 MG INJ IV PRN (08:30)
[2017-02-04] MEDS ORDERED: HYDROmorphONE (0.2 MG/ML) 10ML SYG IV PRN (08:30)
[2017-02-04] MEDS ORDERED: FENTAnyl 50 MCG/ML VIAL IV PRN (08:30)
[2017-02-04] MEDS ORDERED: ONDANSETRON 4 MG INJ IV PRN (08:30)
[2017-02-04] MEDS ORDERED: DIPHENHYDRAMINE 50 MG INJ IV PRN (08:30)
[2017-02-04] MEDS ORDERED: MEPERIDINE 25 MG INJ IV PRN (08:30)
[2017-02-04] MEDS: ENOXAPARIN 40 MG/0.4 ML SYG SC SCH (09:00)
--- NOTE | 2017-02-04 09:01 | OPR ---
Date/Time of Note Date/Time of Note DATE: 02/04/17 TIME: 09:01 Operative Report Procedure Date: Feb 04, 2017 Preoperative Diagnosis Right second toe distal gangrene Right second toe osteomyelitis Peripheral vascular disease Diabetes mellitus Peripheral neuropathy Postoperative Diagnosis Right second toe distal gangrene Right second toe osteomyelitis Peripheral vascular disease Diabetes mellitus Peripheral neuropathy Surgeon: HIGINIO ECHEVARRIA DPM Anesthesia Type: MAC Estimated Blood Loss: minimal Transfusion Required: no Specimens Distal right second toe Grafts/Implants: none Complications: no Pt Condition Post Procedure: stable Disposition: PACU Indications This is a pleasant 56-year-old diabetic male patient who is been suffering with distal right second toe osteomyelitis and abscess formation along with gangrene. Proposed surgery is distal amputation of right second toe. Risks and complications of this type of surgery was discussed with patient in great detail. Risks and complications discussed include but are not limited to postoperative pain, postoperative infection, worsening of the condition, need for additional surgical procedures, deep venous thrombosis, limb loss and loss of life. An informed consent was obtained, signed and placed in the chart. No guarantee or warranty was given or implied as to the outcome of the procedure, either in verbal or written form. Operative\Procedure Findings Distal gangrene right second toe with pus and soft bone. Compromised peripheral vascular circulation. Procedure Description The patient was seen in the preoperative area. Proposed surgery was discussed with patient in great detail. An informed consent was obtained, signed and placed in the chart. Patient was then taken to the operating room and was placed on the operative table in supine position. The right foot was then scrubbed, prepped and draped in the usual aseptic manner. Attention was directed to the right second toe. A fishmouth incision was made at the level of the distal interphalangeal joint of the right second toe using a #15 blade. Bleeders were cauterized as necessary. Distal right second toe was then disarticulated at the distal interphalangeal joint and passed to the back table. The wound was irrigated with copious amounts of sterile normal saline with bacitracin. I was able to close the skin with no tension using 2-0 nylon suture in simple suture technique. Postop injection of 0.5% Marcaine plain was given. Sterile dressing was applied to the right foot. The patient tolerated procedure and anesthesia well. He was transferred to recovery room with vital signs stable vascular status intact to the remaining right foot. Patient will be sent back to the floor after postoperative monitoring. Patient will be followed in-house. Partial weightbearing is allowed. Postop orders written along with postop orders for x-rays. HIGINIO ECHEVARRIA DPM Feb 04, 2017 09:01
--- NOTE | 2017-02-04 09:01 | OPPN ---
Date/Time of Note Date/Time of Note DATE: 02/04/17 TIME: 08:58 Operative Report Preoperative Diagnosis Osteomyelitis right second toe Gangrene right second toe Peripheral vascular disease Diabetes mellitus Peripheral neuropathy Postoperative Diagnosis Osteomyelitis right second toe Gangrene right second toe Peripheral vascular disease Diabetes mellitus Peripheral neuropathy Operation/Procedure Performed Distal right second toe amputation Bone culture right second toe Provider: HIGINIO ECHEVARRIA DPM Anesthesia Type: MAC Estimated blood loss: minimal Transfusion Required: no Specimens Distal right second toe Bone culture right second toe Grafts/Implants: none Complications: no HIGINIO ECHEVARRIA DPM Feb 04, 2017 09:01
[2017-02-04] MEDS: GEMFIBROZIL 600 MG TAB PO SCH ×2 (10:29→20:12)
[2017-02-04] MEDS: FAMOTIDINE 20 MG TAB PO SCH ×2 (10:29→20:12)
[2017-02-04] MEDS: INSULIN ASPART [NOVOLOG] 3 ML PEN SC SCH ×7 (10:29→20:13)
[2017-02-04] MEDS: AMLODIPINE 10 MG TAB PO SCH (10:30)
[2017-02-04] MEDS: BENAZEPRIL 20 MG TAB PO SCH (10:30)
[2017-02-04] MEDS: INSULIN GLARGINE [LANtus] 3 ML PEN SC SCH (10:38)
[2017-02-04 11:29] LABS: CREATININE 0.61 mg/dl (0.61-1.24)
--- NOTE | 2017-02-04 14:05 | RADRPT ---
PROCEDURE: XR Right Foot CLINICAL INDICATION: Postop TECHNIQUE: AP, oblique, and lateral radiographs were submitted. COMPARISON: 01/26/2017 FINDINGS: Osseous structures: Since the previous study, the second toe has been amputated at the proximal aspe ct of the middle phalanx. The fourth toe is again seen to be amputated at the metatarsal phalangeal joint. The visualized osseous elements appear intact. Joint spaces: are well maintained, with no significant spurring, erosion or joint effusion evident. Soft tissues: Vascular calcification is noted. IMPRESSION: 1. Interval amputation of the second toe at the proximal shaft of the middle phalanx. 2. There is again amputation of the right fourth toe at the metatarsal phalangeal joint. 3. The remaining osseous elements appear intact and the joint spaces are anatomically maintained. 4. Vascular calcification. Physician Nora Date Time Electronically viewed and signed by Physician Nora on 02/04/2017 14:04 /
[2017-02-04] MEDS: VANCOMYCIN 1.5 GM in SOD CHLORIDE 0.9% 250 ML IVPB SCH (17:25)
--- NOTE | 2017-02-04 17:25 | PN ---
DATE: 02/04/2017 SUBJECTIVE DATA: No events overnight. The patient is sleeping. No fevers overnight. LABORATORY AND DIAGNOSTIC DATA: No labs this morning. BUN 14, creatinine 0.61. ANTIMICROBIALS: 1. Vancomycin 2. Levaquin. OBJECTIVE DATA: GENERAL: Well developed, middle-aged, man, who is in no distress. HEENT: Head atraumatic, normocephalic. Sclerae anicteric. NECK: Supple. CHEST: Rise symmetrical. Breath sounds clear. HEART: S1, S2. ABDOMEN: Soft, bowel sounds present. EXTREMITIES: With right foot dressing intact. ASSESSMENT: 1. Right foot cellulitis, resolving with second toe osteomyelitis and gangrene, status post distal right second toe amputation. 2. Diabetes. 3. Diabetic neuropathy. 4. Peripheral vascular disease. PLAN: Patient remains stable. Pending pathology report. Continue antibiotics. We will discuss with Podiatry final plan of care in regards to discharge antibiotics. Dictated By: Miguel Ángel Briggs NP /regino/tonia /Document#: [id number]
--- NOTE | 2017-02-04 17:30 | PN ---
Date/Time of Note Date/Time of Note DATE: 02/04/17 TIME: 17:28 Assessment/Plan VTE Prophylaxis VTE Prophylaxis Intervention: other Lines/Catheters IV Catheter Type (from [facility]): Saline Lock Urinary Cath still in place: No Assessment/Plan Chief Complaint/Hosp Course 1. 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 and there is a toe tip ulceration.s/p toe amputation 2 DJD 3 DM PLAN PER ID AND SURGERY ck labs Problems: Subjective 24 Hr Interval Summary Subjective hx not possible: other (s/p toe amputation) Gastrointestinal: no complaints Genitourinary: no complaints Musculoskeletal: restricted range of motion Exam/Review of Systems Vital Signs Vitals Vital Signs Date Time Temp Pulse Resp B/P Pulse Ox O2 Delivery O2 Flow Rate FiO2 02/04/17 14:05 98.7 63 18 107/65 98 02/04/17 09:27 Room Air Intake and Output 02/03/17 02/03/17 02/04/17 14:59 22:59 06:59 Intake Total 375 ml 2880 ml 400 ml Output Total 2950 ml 900 ml Balance 375 ml -70 ml -500 ml Exam Neck: supple Respiratory: clear to auscultation Cardiovascular: regular rate and rhythm Gastrointestinal: soft Musculoskeletal: nl extremities to inspection Extremities: normal pulses Results Result Diagram: 02/04/17 1044 Results 24 hrs Laboratory Tests Test 02/03/17 20:03 02/04/17 03:46 02/04/17 09:35 02/04/17 10:28 Bedside Glucose 130 120 104 Vancomycin Level Trough 17.8 Test 02/04/17 10:44 02/04/17 12:15 Blood Urea Nitrogen 14 Creatinine 0.61 Bedside Glucose 149 Medications Medications Current Medications Amlodipine Besylate (Norvasc) 10 mg DAILY PO Last administered on 02/04/17 10: 30; Admin Dose 10 MG; Start 01/26/17 at 09:00 Gemfibrozil (Lopid) 600 mg BID PO Last administered on 02/04/17 10:29; Admin Dose 600 MG; Start 01/26/17 at 09:00 Miscellaneous Information 1 ea NOTE XX ; Start 01/26/17 at 09:00 Glucose (Glutose) 15 gm Q15M PRN PO DECREASED GLUCOSE; Start 01/26/17 at 09:00 Glucose (Glutose) 22.5 gm Q15M PRN PO DECREASED GLUCOSE; Start 01/26/17 at 09: 00 Dextrose (D50w Syringe) 25 ml Q15M PRN IV DECREASED GLUCOSE; Start 01/26/17 at 09:00 Dextrose (D50w Syringe) 50 ml Q15M PRN IV DECREASED GLUCOSE; Start 01/26/17 at 09:00 Glucagon (Glucagen) 1 mg Q15M PRN IM DECREASED GLUCOSE; Start 01/26/17 at 09:00 Glucose (Glutose) 15 gm Q15M PRN BUCCAL DECREASED GLUCOSE; Start 01/26/17 at 09 :00 Ondansetron HCl (Zofran Inj) 4 mg Q6H PRN IV NAUSEA AND/OR VOMITING; Start at 10:30 Acetaminophen (Tylenol Tab) 650 mg Q6H PRN PO PAIN LEVEL 1-3 OR FEVER; Start at 10:30 Acetaminophen/ Hydrocodone Bitart ([place] (5/325)) 1 tab Q6H PRN PO MODERATE PAIN LEVEL 4-6; Start 01/26/17 at 10:30 Acetaminophen/ Hydrocodone Bitart ([place] (5/325)) 2 tab Q6H PRN PO SEVERE PAIN LEVEL 7-10; Start 01/26/17 at 10:30 Docusate Sodium (Colace) 100 mg Q12H PRN PO CONSTIPATION; Start 01/26/17 at 10: 30 Zolpidem Tartrate (Ambien) 5 mg QHS PRN PO SLEEP; Start 01/26/17 at 10:30 Enoxaparin Sodium (Lovenox) 40 mg DAILY SC Last administered on 02/03/17 08:25 ; Admin Dose 40 MG; Start 01/27/17 at 09:00 Diagnostic Test (Pha) (Accu-Chek) 1 ea 02 XX Last administered on 01/27/17 01: 54; Admin Dose 1 EA; Start 01/27/17 at 02:00 Levofloxacin (Levaquin) 500 mg DAILY@06 PO Last administered on 02/03/17 05:36 ; Admin Dose 500 MG; Start 01/28/17 at 06:00 Famotidine (Pepcid) 20 mg Q12 PO Last administered on 02/04/17 10:29; Admin Dose 20 MG; Start 01/27/17 at 21:00 Insulin Glargine (Lantus) 15 unit DAILY SC Last administered on 02/04/17 10:38 ; Admin Dose 15 UNIT; Start 01/29/17 at 20:00 Benazepril HCl 20 mg 20 mg DAILY PO Last administered on 02/04/17 10:30; Admin Dose 20 MG; Start 02/02/17 at 09:00 Vancomycin HCl/ Sodium Chloride (Vancocin/NS) 250 ml @ 83.333 mls/ hr Q12H IVPB ; Start 02/04/17 at 17:00 OSMAR SWAIN MD Feb 04, 2017 17:30
[2017-02-05] MEDS: ACCU-CHEK XX SCH (01:23)
[2017-02-05 01:30] VITALS: BP 131/78; RESP 18
[2017-02-05] MEDS: VANCOMYCIN 1.5 GM in SOD CHLORIDE 0.9% 250 ML IVPB SCH ×2 (05:34→17:10)
[2017-02-05] MEDS: LEVOFLOXACIN 500 MG TAB PO SCH (05:34)
[2017-02-05 07:25] VITALS: BP 153/80; RESP 18
[2017-02-05] MEDS: INSULIN ASPART [NOVOLOG] 3 ML PEN SC SCH ×7 (07:56→21:00)
[2017-02-05] MEDS: FAMOTIDINE 20 MG TAB PO SCH ×2 (09:16→22:08)
[2017-02-05] MEDS: AMLODIPINE 10 MG TAB PO SCH (09:17)
[2017-02-05] MEDS: BENAZEPRIL 20 MG TAB PO SCH (09:17)
[2017-02-05] MEDS: GEMFIBROZIL 600 MG TAB PO SCH ×2 (09:17→22:08)
[2017-02-05] MEDS: ENOXAPARIN 40 MG/0.4 ML SYG SC SCH (09:32)
[2017-02-05] MEDS: INSULIN GLARGINE [LANtus] 3 ML PEN SC SCH (09:32)
[2017-02-05 10:25] LABS: BASOPHIL # 0.1 10^3/ul (0.0-0.1); BASOPHILS % 1.4 % (0.0-2.0); EOSINOPHILS # 0.2 10^3/ul (0.0-0.5); EOSINOPHILS % 2.7 % (0.0-7.0); HEMATOCRIT 42.8 % (42.0-52.0); HEMOGLOBIN 14.7 g/dl (14.0-18.0); LYMPHOCYTES # 2.5 10^3/ul (0.8-2.9); LYMPHOCYTES % 42.1 % (15.0-51.0); MEAN CORPUSCULAR HEMOGLOBIN 33.2 pg (29.0-33.0); MEAN CORPUSCULAR HGB CONC 34.3 g/dl (32.0-37.0); MEAN CORPUSCULAR VOLUME 96.6 fl (82.0-101.0); MEAN PLATELET VOLUME 10.1 fl (7.4-10.4); MONOCYTE # 0.4 10^3/ul (0.3-0.9); MONOCYTES % 6.1 % (0.0-11.0); NEUTROPHILS % 47.5 % (39.0-77.0); PLATELET COUNT 194 10^3/UL (140-415); RED BLOOD COUNT 4.43 10^6/ul (4.70-6.10); RED CELL DISTRIBUTION WIDTH 11.3 % (11.5-14.5); WHITE BLOOD COUNT 5.9 10^3/ul (4.8-10.8)
[2017-02-05 10:50] LABS: ALBUMIN 3.4 g/dl (3.3-4.9); BILIRUBIN,INDIRECT 0.3 mg/dl (0-1.1); BILIRUBIN,TOTAL 0.3 mg/dl (0.2-1.3); CALCIUM 9.3 mg/dl (8.4-10.2); CREATININE 0.66 mg/dl (0.61-1.24); POTASSIUM 4.2 mmol/L (3.5-5.1); TOTAL PROTEIN 6.8 g/dl (6.1-8.1)
--- NOTE | 2017-02-05 12:01 | PN ---
Date/Time of Note Date/Time of Note DATE: 02/05/17 TIME: 11:59 Assessment/Plan VTE Prophylaxis VTE Prophylaxis Intervention: ambulation Lines/Catheters IV [facility] (from [facility] Saline Lock Urinary Cath still in place: No Assessment/Plan Chief Complaint/Hosp Course 1. s/p amputation of the second toe at the proximal shaft of the middle phalanx 2. Diabetes mellitus controlled. 3. Diabetic neuropathy. 4. Hypertension controlled. Problems: Assessment/Plan 1. Continue pt 2. Keep the dressing on Exam/Review of Systems Vital Signs Vitals Vital Signs Date Time Temp Pulse Resp B/P Pulse Ox O2 Delivery O2 Flow Rate FiO2 02/05/17 07:25 98.2 60 18 153/80 97 02/04/17 09:27 Room Air Intake and Output 02/04/17 02/04/17 02/05/17 15:00 23:00 07:00 Intake Total 800 ml 1930 ml 440 ml Output Total 1 ml 950 ml 1520 ml Balance 799 ml 980 ml -1080 ml Results Result Diagram: 02/05/17 0957 02/05/17 0957 Results 24 hrs Laboratory Tests Test 02/04/17 12:15 02/04/17 17:22 02/04/17 20:12 02/05/17 07:55 Bedside Glucose 149 133 138 105 Test 02/05/17 09:57 White Blood Count 5.9 Red Blood Count 4.43 L Hemoglobin 14.7 Hematocrit 42.8 Mean Corpuscular Volume 96.6 Mean Corpuscular Hemoglobin 33.2 H Mean Corpuscular Hemoglobin Concent 34.3 Red Cell Distribution Width 11.3 L Platelet Count 194 # Mean Platelet Volume 10.1 Neutrophils % 47.5 Lymphocytes % 42.1 Monocytes % 6.1 Eosinophils % 2.7 Basophils % 1.4 Nucleated Red Blood Cells % 0.0 Neutrophils # (Manual) 2.8 Lymphocytes # 2.5 Monocytes # 0.4 Eosinophils # 0.2 Basophils # 0.1 Nucleated Red Blood Cells # 0.0 Sodium Level 136 Potassium Level 4.2 Chloride Level 103 Carbon Dioxide Level 28 Anion Gap 9 Blood Urea Nitrogen 15 Creatinine 0.66 Glucose Level 108 Calcium Level 9.3 Total Bilirubin 0.3 Direct Bilirubin 0.00 Indirect Bilirubin 0.3 Aspartate Amino Transf (AST/SGOT) 32 Alanine Aminotransferase (ALT/SGPT) 50 Alkaline Phosphatase 78 Total Protein 6.8 Albumin 3.4 Globulin 3.40 H Albumin/Globulin Ratio 1.00 Medications Medications Current Medications Amlodipine Besylate (Norvasc) 10 mg DAILY PO Last administered on 02/05/17 09: 17; Admin Dose 10 MG; Start 01/26/17 at 09:00 Gemfibrozil (Lopid) 600 mg BID PO Last administered on 02/05/17 09:17; Admin Dose 600 MG; Start 01/26/17 at 09:00 Miscellaneous Information 1 ea NOTE XX ; Start 01/26/17 at 09:00 Glucose (Glutose) 15 gm Q15M PRN PO DECREASED GLUCOSE; Start 01/26/17 at 09:00 Glucose (Glutose) 22.5 gm Q15M PRN PO DECREASED GLUCOSE; Start 01/26/17 at 09: 00 Dextrose (D50w Syringe) 25 ml Q15M PRN IV DECREASED GLUCOSE; Start 01/26/17 at 09:00 Dextrose (D50w Syringe) 50 ml Q15M PRN IV DECREASED GLUCOSE; Start 01/26/17 at 09:00 Glucagon (Glucagen) 1 mg Q15M PRN IM DECREASED GLUCOSE; Start 01/26/17 at 09:00 Glucose (Glutose) 15 gm Q15M PRN BUCCAL DECREASED GLUCOSE; Start 01/26/17 at 09 :00 Ondansetron HCl (Zofran Inj) 4 mg Q6H PRN IV NAUSEA AND/OR VOMITING; Start at 10:30 Acetaminophen (Tylenol Tab) 650 mg Q6H PRN PO PAIN LEVEL 1-3 OR FEVER; Start at 10:30 Acetaminophen/ Hydrocodone Bitart ([place] (5/325)) 1 tab Q6H PRN PO MODERATE PAIN LEVEL 4-6 Last administered on 02/05/17 04:45; Admin Dose 1 TAB; Start at 10:30 Acetaminophen/ Hydrocodone Bitart ([place] (5/325)) 2 tab Q6H PRN PO SEVERE PAIN LEVEL 7-10 Last administered on 02/04/17 20:13; Admin Dose 2 TAB; Start at 10:30 Docusate Sodium (Colace) 100 mg Q12H PRN PO CONSTIPATION; Start 01/26/17 at 10: 30 Zolpidem Tartrate (Ambien) 5 mg QHS PRN PO SLEEP; Start 01/26/17 at 10:30 Enoxaparin Sodium (Lovenox) 40 mg DAILY SC Last administered on 02/05/17 09:32 ; Admin Dose 40 MG; Start 01/27/17 at 09:00 Diagnostic Test (Pha) (Accu-Chek) 1 ea 02 XX Last administered on 01/27/17 01: 54; Admin Dose 1 EA; Start 01/27/17 at 02:00 Levofloxacin (Levaquin) 500 mg DAILY@06 PO Last administered on 02/05/17 05:34 ; Admin Dose 500 MG; Start 01/28/17 at 06:00 Famotidine (Pepcid) 20 mg Q12 PO Last administered on 02/05/17 09:16; Admin Dose 20 MG; Start 01/27/17 at 21:00 Insulin Glargine (Lantus) 15 unit DAILY SC Last administered on 02/05/17 09:32 ; Admin Dose 15 UNIT; Start 01/29/17 at 20:00 Benazepril HCl 20 mg 20 mg DAILY PO Last administered on 02/05/17 09:17; Admin Dose 20 MG; Start 02/02/17 at 09:00 Vancomycin HCl/ Sodium Chloride (Vancocin/NS) 250 ml @ 83.333 mls/ hr Q12H IVPB Last administered on 02/05/17 05:34; Admin Dose 83.333 MLS/HR; Start at 17:00 SOFYA GUTIERREZ Feb 05, 2017 12:01
[2017-02-05 14:23] VITALS: BP 130/78; RESP 18
--- NOTE | 2017-02-05 16:16 | PDOCDIS ---
Discharge Instructions CONDITION Patient Condition: Stable HOME CARE INSTRUCTIONS: Special Diet: 1800 YASEMIN 2 GMS NA ACTIVITY: Activity Restrictions: Slowly Increase Activity FOLLOW UP/APPOINTMENTS Follow-up Plan f/u own pcp [address] olson [address] jimenes1 wk OSMAR SWAIN MD Feb 05, 2017 16:16
[2017-02-05] MEDS ORDERED: SULF1TAB31 PO (16:19)
[2017-02-05] MEDS ORDERED: BENA20TA48 PO (16:19)
[2017-02-05] MEDS ORDERED: MELO-110 PO (16:19)
--- NOTE | 2017-02-05 17:29 | PN ---
DATE: 02/05/2017 SUBJECTIVE DATA: No acute changes overnight. The patient is alert, looks comfortable. No fevers. VITAL SIGNS: Stable. LABORATORY DATA: WBC 5.9, no shift, no bands. BUN 15, creatinine 0.66. PHYSICAL EXAMINATION: This is a well-developed, middle-aged man, who is alert, in no distress. HEENT: Head atraumatic, normocephalic. Sclerae anicteric. Buccal mucosa dry. NECK: Supple. CHEST: Rise symmetrical. Breath sounds clear. HEART: S1, S2. ABDOMEN: Soft, bowel sounds present. EXTREMITIES: Right foot dressing intact. ASSESSMENT: 1. Right 2nd toe osteomyelitis with gangrene, status post amputation. 2. Diabetes. 3. Peripheral vascular disease. PLAN: The patient remains stable as per discussion with Dr. Olivier Meehan. There is no need to continue him on IV antibiotics. We will send him home on a short course, p.o. Bactrim for 5 more days. The patient to follow with [facility] as needed. Dictated By: Miguel Ángel Briggs NP /regino/jake /Document#: [id number]
[2017-02-05 20:01] VITALS: BP 143/76; RESP 18
[2017-02-06] MEDS: ACCU-CHEK XX SCH (01:11)
[2017-02-06 01:18] VITALS: BP 119/72; RESP 18
[2017-02-06] MEDS: VANCOMYCIN 1.5 GM in SOD CHLORIDE 0.9% 250 ML IVPB SCH (05:25)
[2017-02-06] MEDS: LEVOFLOXACIN 500 MG TAB PO SCH (05:25)
[2017-02-06 07:17] VITALS: BP 138/80; RESP 18
[2017-02-06] MEDS: INSULIN ASPART [NOVOLOG] 3 ML PEN SC SCH ×5 (08:15→17:52)
[2017-02-06] MEDS: FAMOTIDINE 20 MG TAB PO SCH (08:30)
[2017-02-06] MEDS: GEMFIBROZIL 600 MG TAB PO SCH (08:30)
[2017-02-06] MEDS: AMLODIPINE 10 MG TAB PO SCH (08:30)
[2017-02-06] MEDS: BENAZEPRIL 20 MG TAB PO SCH (08:31)
[2017-02-06] MEDS: ENOXAPARIN 40 MG/0.4 ML SYG SC SCH (08:39)
[2017-02-06] MEDS: INSULIN GLARGINE [LANtus] 3 ML PEN SC SCH (08:39)
--- NOTE | 2017-02-06 09:50 | PN ---
Date/Time of Note Date/Time of Note DATE: 02/06/17 TIME: 09:50 Assessment/Plan Lines/Catheters IV Catheter Type (from [facility]): Saline Lock Junior in Place (from [facility]): No Exam/Review of Systems Vital Signs Vitals Vital Signs Date Time Temp Pulse Resp B/P Pulse Ox O2 Delivery O2 Flow Rate FiO2 02/06/17 07:17 98.1 60 18 138/80 98 02/04/17 09:27 Room Air Intake and Output 02/05/17 02/05/17 02/06/17 15:00 23:00 07:00 Intake Total 250 ml 3370 ml 420 ml Output Total 4035 ml 840 ml Balance 250 ml -665 ml -420 ml Results Result Diagram: 02/05/17 0957 02/05/17 0957 HIGINIO ECHEVARRIA DPM Feb 06, 2017 09:50
[2017-02-06 14:30] VITALS: BP 137/76; RESP 18
--- NOTE | 2017-02-06 15:26 | PN ---
Date/Time of Note Date/Time of Note DATE: 02/06/17 TIME: 15:25 Assessment/Plan VTE Prophylaxis VTE Prophylaxis Intervention: ambulation Lines/Catheters IV Catheter Type (from [facility]): Saline Lock Urinary Cath still in place: No Assessment/Plan Chief Complaint/Hosp Course 1. s/p amputation of the second toe at the proximal shaft of the middle phalanx 2. Diabetes mellitus controlled. 3. Diabetic neuropathy. 4. Hypertension controlled. Problems: Assessment/Plan 1. Discharge home with home health and a/b Subjective 24 Hr Interval Summary Constitutional: improved, no complaints Exam/Review of Systems Vital Signs Vitals Vital Signs Date Time Temp Pulse Resp B/P Pulse Ox O2 Delivery O2 Flow Rate FiO2 02/06/17 14:30 98.6 74 18 137/76 97 02/04/17 09:27 Room Air Intake and Output 02/05/17 02/05/17 02/06/17 15:00 23:00 07:00 Intake Total 250 ml 3370 ml 420 ml Output Total 4035 ml 840 ml Balance 250 ml -665 ml -420 ml Exam Constitutional: alert, oriented Musculoskeletal: other (wound left foot II finger) Results Result Diagram: 02/05/17 0957 02/05/17 0957 Results 24 hrs Laboratory Tests Test 02/05/17 17:34 02/05/17 22:06 02/06/17 03:44 02/06/17 08:18 Bedside Glucose 192 98 128 Vancomycin Level Trough 14.9 Test 02/06/17 12:22 Bedside Glucose 157 Medications Medications Current Medications Amlodipine Besylate (Norvasc) 10 mg DAILY PO Last administered on 02/06/17 08: 30; Admin Dose 10 MG; Start 01/26/17 at 09:00 Gemfibrozil (Lopid) 600 mg BID PO Last administered on 02/06/17 08:30; Admin Dose 600 MG; Start 01/26/17 at 09:00 Miscellaneous Information 1 ea NOTE XX ; Start 01/26/17 at 09:00 Glucose (Glutose) 15 gm Q15M PRN PO DECREASED GLUCOSE; Start 01/26/17 at 09:00 Glucose (Glutose) 22.5 gm Q15M PRN PO DECREASED GLUCOSE; Start 01/26/17 at 09: 00 Dextrose (D50w Syringe) 25 ml Q15M PRN IV DECREASED GLUCOSE; Start 01/26/17 at 09:00 Dextrose (D50w Syringe) 50 ml Q15M PRN IV DECREASED GLUCOSE; Start 01/26/17 at 09:00 Glucagon (Glucagen) 1 mg Q15M PRN IM DECREASED GLUCOSE; Start 01/26/17 at 09:00 Glucose (Glutose) 15 gm Q15M PRN BUCCAL DECREASED GLUCOSE; Start 01/26/17 at 09 :00 Ondansetron HCl (Zofran Inj) 4 mg Q6H PRN IV NAUSEA AND/OR VOMITING; Start at 10:30 Acetaminophen (Tylenol Tab) 650 mg Q6H PRN PO PAIN LEVEL 1-3 OR FEVER; Start at 10:30 Acetaminophen/ Hydrocodone Bitart ([place] (5/325)) 1 tab Q6H PRN PO MODERATE PAIN LEVEL 4-6 Last administered on 02/05/17 04:45; Admin Dose 1 TAB; Start at 10:30 Acetaminophen/ Hydrocodone Bitart ([place] (5/325)) 2 tab Q6H PRN PO SEVERE PAIN LEVEL 7-10 Last administered on 02/04/17 20:13; Admin Dose 2 TAB; Start at 10:30 Docusate Sodium (Colace) 100 mg Q12H PRN PO CONSTIPATION; Start 01/26/17 at 10: 30 Zolpidem Tartrate (Ambien) 5 mg QHS PRN PO SLEEP; Start 01/26/17 at 10:30 Enoxaparin Sodium (Lovenox) 40 mg DAILY SC Last administered on 02/06/17 08:39 ; Admin Dose 40 MG; Start 01/27/17 at 09:00 Diagnostic Test (Pha) (Accu-Chek) 1 ea 02 XX Last administered on 01/27/17 01: 54; Admin Dose 1 EA; Start 01/27/17 at 02:00 Levofloxacin (Levaquin) 500 mg DAILY@06 PO Last administered on 02/06/17 05:25 ; Admin Dose 500 MG; Start 01/28/17 at 06:00 Famotidine (Pepcid) 20 mg Q12 PO Last administered on 02/06/17 08:30; Admin Dose 20 MG; Start 8/30/17 at 21:00 Insulin Glargine (Lantus) 15 unit DAILY SC Last administered on 02/06/17 08:39 ; Admin Dose 15 UNIT; Start 01/29/17 at 20:00 Benazepril HCl 20 mg 20 mg DAILY PO Last administered on 02/06/17 08:31; Admin Dose 20 MG; Start 02/02/17 at 09:00 Vancomycin HCl/ Sodium Chloride (Vancocin/NS) 250 ml @ 83.333 mls/ hr Q12H IVPB Last administered on 02/06/17 05:25; Admin Dose 83.333 MLS/HR; Start at 17:00 SOFYA GUTIERREZ Feb 06, 2017 15:26
--- NOTE | 2017-02-06 15:33 | CONS ---
Date/Time of Note Date/Time of Note DATE: 02/06/17 TIME: 15:33 Assessment/Plan Assessment/Plan Chief Complaint/Hosp Course SUBJECTIVE DATA: No acute changes overnight. The patient is alert, looks comfortable. No fevers. VITAL SIGNS: Stable. PHYSICAL EXAMINATION: This is a well-developed, middle-aged man, who is alert, in no distress. HEENT: Head atraumatic, normocephalic. Sclerae anicteric. Buccal mucosa dry. NECK: Supple. CHEST: Rise symmetrical. Breath sounds clear. HEART: S1, S2. ABDOMEN: Soft, bowel sounds present. EXTREMITIES: Right foot dressing intact. ASSESSMENT: 1. Right 2nd toe osteomyelitis with gangrene, status post amputation. 2. Diabetes. 3. Peripheral vascular disease. PLAN: The patient remains stable, pending dc home on oral abx, f/u with dr Meehan at [facility] Problems: Consultation Date/Type/Reason Admit Date/Time Jan 26, 2017 at 02:37 Initial Consult Date 01/27/17 Type of Consultation: ID Exam/Review of Systems Vital Signs Vitals Vital Signs Date Time Temp Pulse Resp B/P Pulse Ox O2 Delivery O2 Flow Rate FiO2 02/06/17 14:30 98.6 74 18 137/76 97 02/04/17 09:27 Room Air Intake and Output 02/05/17 02/05/17 02/06/17 15:00 23:00 07:00 Intake Total 250 ml 3370 ml 420 ml Output Total 4035 ml 840 ml Balance 250 ml -665 ml -420 ml Results Result Diagram: 02/05/17 0957 02/05/17 0957 Results 24 hrs Laboratory Tests Test 02/05/17 17:34 02/05/17 22:06 02/06/17 03:44 02/06/17 08:18 Bedside Glucose 192 98 128 Vancomycin Level Trough 14.9 Test 02/06/17 12:22 Bedside Glucose 157 Medications Medications Current Medications Amlodipine Besylate (Norvasc) 10 mg DAILY PO Last administered on 02/06/17 08: 30; Admin Dose 10 MG; Start 01/26/17 at 09:00 Gemfibrozil (Lopid) 600 mg BID PO Last administered on 02/06/17 08:30; Admin Dose 600 MG; Start 01/26/17 at 09:00 Miscellaneous Information 1 ea NOTE XX ; Start 01/26/17 at 09:00 Glucose (Glutose) 15 gm Q15M PRN PO DECREASED GLUCOSE; Start 01/26/17 at 09:00 Glucose (Glutose) 22.5 gm Q15M PRN PO DECREASED GLUCOSE; Start 01/26/17 at 09: 00 Dextrose (D50w Syringe) 25 ml Q15M PRN IV DECREASED GLUCOSE; Start 01/26/17 at 09:00 Dextrose (D50w Syringe) 50 ml Q15M PRN IV DECREASED GLUCOSE; Start 01/26/17 at 09:00 Glucagon (Glucagen) 1 mg Q15M PRN IM DECREASED GLUCOSE; Start 01/26/17 at 09:00 Glucose (Glutose) 15 gm Q15M PRN BUCCAL DECREASED GLUCOSE; Start 01/26/17 at 09 :00 Ondansetron HCl (Zofran Inj) 4 mg Q6H PRN IV NAUSEA AND/OR VOMITING; Start at 10:30 Acetaminophen (Tylenol Tab) 650 mg Q6H PRN PO PAIN LEVEL 1-3 OR FEVER; Start at 10:30 Acetaminophen/ Hydrocodone Bitart ([place] (5/325)) 1 tab Q6H PRN PO MODERATE PAIN LEVEL 4-6 Last administered on 02/05/17 04:45; Admin Dose 1 TAB; Start at 10:30 Acetaminophen/ Hydrocodone Bitart ([place] (5/325)) 2 tab Q6H PRN PO SEVERE PAIN LEVEL 7-10 Last administered on 02/04/17 20:13; Admin Dose 2 TAB; Start at 10:30 Docusate Sodium (Colace) 100 mg Q12H PRN PO CONSTIPATION; Start 01/26/17 at 10: 30 Zolpidem Tartrate (Ambien) 5 mg QHS PRN PO SLEEP; Start 01/26/17 at 10:30 Enoxaparin Sodium (Lovenox) 40 mg DAILY SC Last administered on 02/06/17 08:39 ; Admin Dose 40 MG; Start 01/27/17 at 09:00 Diagnostic Test (Pha) (Accu-Chek) 1 ea 02 XX Last administered on 01/27/17 01: 54; Admin Dose 1 EA; Start 01/27/17 at 02:00 Levofloxacin (Levaquin) 500 mg DAILY@06 PO Last administered on 02/06/17 05:25 ; Admin Dose 500 MG; Start 01/28/17 at 06:00 Famotidine (Pepcid) 20 mg Q12 PO Last administered on 02/06/17 08:30; Admin Dose 20 MG; Start 01/27/17 at 21:00 Insulin Glargine (Lantus) 15 unit DAILY SC Last administered on 02/06/17 08:39 ; Admin Dose 15 UNIT; Start 01/29/17 at 20:00 Benazepril HCl 20 mg 20 mg DAILY PO Last administered on 02/06/17 08:31; Admin Dose 20 MG; Start 02/02/17 at 09:00 Vancomycin HCl/ Sodium Chloride (Vancocin/NS) 250 ml @ 83.333 mls/ hr Q12H IVPB Last administered on 02/06/17 05:25; Admin Dose 83.333 MLS/HR; Start at 17:00 ATA AGUILAR NP Feb 06, 2017 15:33
--- NOTE | 2017-02-06 23:52 | DS ---
Date/Time of Note Date/Time of Note DATE: 02/06/17 TIME: 23:48 Discharge Summary Admission/Discharge Info Admit Date/Time Jan 26, 2017 at 02:37 Discharge Date/Time Feb 06, 2017 at 18:30 Discharge Diagnosis 1. Right 2 nd toe osteomyelitis with gangrene, status post amputation. 2. Diabetes mellitus type II, controlled. 3. Peripheral vascular disease. 4. Obesity 5. Hypercholesteremia, 6. History of right 4th toe osteomyelitis, status post amputation 7. Anemia 8. Hypertension, controlled Patient Condition: Good Consults Dr Meehan, auto inspector, Dr Shanks, ID Procedures Amputation of distal phalange right 2nd toe Hx of Present Illness This is this is a 56-year-old male with a past medical history of poorly- controlled diabetes, hypertension, hypercholesteremia, history of right 4th toe osteomyelitis, status post amputation and anemia who came in to the emergency department complaining of worsening redness, swelling and blackish discoloration of the right 2nd toe for past3-4 days. Patient was seen in April 2015 where the patient had an abscess of the right 4th toe, had amputation. The patient was seen by ID and wound consultation. Patient was discharged with a PICC line with IV antibiotics. However, the patient said that he noticed worsening red 2nd toe, foot swelling and some blackish discoloration, which made him worried and came to the emergency department. According to the patient, he had not been taking insulin for the last 6 months due to some kind of paperwork. He just occasionally checks fingersticks at home. Hospital Course During hospitalization he was started on antibiotics and injectable insulin, there were wound care and diet teaching performed. Dr Meehan performed amputation of the distal phalange second toe right foot. Pt was stable after surgery, ambulated and his blood sugar was under control. He was set up for the wound care and continuation of Bactrim PO at home. In stable condition pt was discharged home t follow dr Meehan in [facility] oin one week. Home Meds Active Scripts Sulfamethoxazole/Trimethoprim* (Bactrim Ds* Tablet) 1 Each Tablet, 1 TAB PO BID for 7 Days, TAB Prov:OSMAR SWAIN MD 02/05/17 Meloxicam* (Mobic*) 15 Mg Tablet, 15 MG PO DAILY for 7 Days, #30 TAB Prov:OSMAR SWAIN MD 02/05/17 Benazepril Hcl* (Benazepril Hcl*) 20 Mg Tablet, 20 MG PO DAILY for 28 Days, TAB Prov:OSMAR SWAIN MD 02/05/17 Amlodipine Besylate* (Norvasc*) 10 Mg Tab, 10 MG PO DAILY for 28 Days, BOTTLE Prov:OSMAR SWAIN MD 04/01/15 Reported Medications Gemfibrozil* (Gemfibrozil*) 600 Mg Tablet, 600 MG PO BID, TAB 01/26/17 Ergocalciferol (Vitamin D2) (VITAMIN D2) 2,000 Unit Tablet, 2000 UNIT PO, TAB 01/26/17 Glipizide* (Glipizide*) 5 Mg Tablet, 5 MG PO AC [employer]AKFAST DINNER, TAB 01/26/17 Insulin Glargine* (Lantus*) 100 Unit/Ml Soln, 6 UNIT SC DAILY, EA 05/20/15 Follow-up Plan Dr Meehan 1 week Primary Care Provider Not On Staff Doctor Pending Labs Laboratory Tests Test 02/06/17 03:44 02/06/17 08:18 02/06/17 12:22 02/06/17 17:24 Vancomycin Level Trough 14.9ug/ml (10.0-20.0) Bedside Glucose 128mg/dL (70-220) 157mg/dL (70-220) 184mg/dL (70-220) SOFYA GUTIERREZ Feb 06, 2017 23:52 SOFYA GUTIERREZ Feb 06, 2017 23:52
== END 2017-02-06 18:30 | disposition home or self-care (01) | DRG 256 ==
LOC: E/R 19:37 → MS2 01-26 02:37
PROVIDERS: ADMIT Internal Medicine Nephrology; ATTEND Internal Medicine Nephrology
PROC: 0Y6R0Z3 Detachment at Right 2nd Toe, Low, Open Approach (ICD-10-PCS; principal; 2017-02-04 07:30)
DX: E11.52 Type 2 diabetes mellitus with diabetic peripheral angiopathy with gangrene (principal); I70.261 Atherosclerosis of native arteries of extremities with gangrene, right leg; E11.621 Type 2 diabetes mellitus with foot ulcer; E11.40 Type 2 diabetes mellitus with diabetic neuropathy, unspecified; M86.8X7 Other osteomyelitis, ankle and foot; L02.611 Cutaneous abscess of right foot; E11.69 Type 2 diabetes mellitus with other specified complication; E11.65 Type 2 diabetes mellitus with hyperglycemia; I10 Essential (primary) hypertension; E78.00 Pure hypercholesterolemia, unspecified; Z89.421 Acquired absence of other right toe(s); I70.202 Unspecified atherosclerosis of native arteries of extremities, left leg; L97.513 Non-pressure chronic ulcer of other part of right foot with necrosis of muscle; Z82.49 Family history of ischemic heart disease and other diseases of the circulatory system; M19.90 Unspecified osteoarthritis, unspecified site; E66.9 Obesity, unspecified; Z68.30 Body mass index [BMI] 30.0-30.9, adult; D64.9 Anemia, unspecified; L03.031 Cellulitis of right toe
CPT/HCPCS: 36415; 73630; 73718; 80048; 80053; 80202; 82565; 82962; 83690; 84520; 85025; 87040; 87070; 87081; 87102; 87116; 88305; 88311; 93922; 96374; 96375; J0692; J1650; J1815; J2250; J2270; J2405; J2543; J3010; J3370; J7040; J7042; J7050